=== PATIENT | female | born 1955 | race African-American/Black ===

== ENCOUNTER 2018-02-24 23:14 | Emergency (ER) | payer MEDICAID ==
[~2018-02-24] VITALS: Ht 172.7 cm; Wt 108.9 kg
[2018-02-25 00:23] LABS: Basophils # (auto) 0.2 uL; Basophils % (auto) 2.6 % (0.0-2.0); Eosinophils # (auto) 0.2 uL; Eosinophils % (auto) 3.3 % (0.0-7.0); Hematocrit 35.2 % (36.0-46.0); Hemoglobin 11.5 g/dL (12.2-16.2); Lymphocytes # (auto) 0.7 uL; Lymphocytes % (auto) 10.4 % (10.0-50.0); Mean Corpuscular Hemoglobin 29.9 pg (28.0-32.0); Mean Corpuscular Hgb Conc. 32.7 g/dL (32.0-36.0); Mean Corpuscular Volume 91.7 fL (80.0-100.0); Monocytes # (auto) 0.5 uL; Monocytes % (auto) 6.7 % (0.0-12.0); Neutrophils # (auto) 5.5 uL; Platelet Count (auto) 180 10^3/uL (140-450); Red Blood Cells 3.84 10^6/uL (4.0-5.20); Red Cell Distribution Width 15.1 % (11.8-14.3); White Blood Cell 7.2 10^3/uL (4.4-10.8)
[2018-02-25 00:39] LABS: Albumin 3.3 g/dL (3.4-5.0); BUN/Creatinine Ratio 15.7; Calcium 9.6 mg/dL (8.5-10.1); Potassium 4.1 mmol/L (3.5-5.1)
[2018-02-25 00:41] LABS: Bilirubin, Total 0.2 mg/dL (0.2-1.0); Total Protein 7.4 g/dL (6.4-8.2)
[2018-02-25] MEDS ORDERED: KETOROLAC TROMETH 60MG/2ML VIAL IM ONE (01:15)
[2018-02-25] MEDS ORDERED: HYDROcodone-ACET 7.5/325MG TAB PO ONE (01:15)
[2018-02-25 01:39] LABS: INR 1.16 (0.9-1.15); Partial Thromboplastin Time 30.6 sec (23.78-33.04); Prothrombin Time 12.3 sec (9.27-12.13)
[2018-02-25 03:03] LABS: Urine Bacteria NONE SEEN /hpf (None Seen); Urine Blood Negative /uL (Negative); Urine Specific Gravity 1.014 (1.001-1.035); Urine WBC 11 /hpf (0 - 5)
[2018-02-25 03:40] VITALS: BP 159/64
== END 2018-02-25 03:41 | disposition home or self-care (01) ==
LOC: EDBD 23:14 → ER 23:14 → EDUNIT# 23:14 → ER 02-25 03:41
DX: M54.12 Radiculopathy, cervical region (principal); R07.9 Chest pain, unspecified; E11.9 Type 2 diabetes mellitus without complications; I10 Essential (primary) hypertension
CPT/HCPCS: 36415; 71045; 72125; 80053; 81001; 83880; 84484; 85025; 85610; 85730; 93005; 94761; 96372; 99285; J1885

== ENCOUNTER 2019-07-13 22:27 | Inpatient (IN) | payer MEDICARE, MEDICAID ==
[~2019-07-13] VITALS: Ht 170.2 cm; Wt 107.8 kg
[2019-07-13] MEDS ORDERED: cloNIDine HCL 0.1 MG TAB ONE (23:18)
[2019-07-14] VITALS (9 sets, daily range): BP systolic 125–210; BP diastolic 64–104
[2019-07-14 00:13] LABS: INR 1.06 (0.9-1.15); Partial Thromboplastin Time 31.9 sec (23.64-32.05)
[2019-07-14 00:14] LABS: Calcium 10.3 mg/dL (8.5-10.1); Potassium 3.8 mmol/L (3.5-5.1)
[2019-07-14 00:18] LABS: BUN/Creatinine Ratio 9.5; Bilirubin, Total 0.2 mg/dL (0.2-1.0); Total Protein 8.2 g/dL (6.4-8.2)
[2019-07-14 00:35] LABS: Basophils # (auto) 0 10 ^3/uL (0-0.2); Basophils % (auto) 0.3 % (0.0-2.0); Eosinophils # (auto) 0 10 ^3/uL (0-0.8); Eosinophils % (auto) 0.1 % (0.0-7.0); Hematocrit 34.1 % (36.0-46.0); Hemoglobin 10.2 g/dL (12.2-16.2); Lymphocytes # (auto) 0.6 10 ^3/uL (0.4-5.4); Lymphocytes % (auto) 4.3 % (10.0-50.0); Mean Corpuscular Hemoglobin 29.5 pg (28.0-32.0); Mean Corpuscular Hgb Conc. 29.9 g/dL (32.0-36.0); Mean Corpuscular Volume 98.5 fL (80.0-100.0); Monocytes # (auto) 0.9 10 ^3/uL (0-1.3); Monocytes % (auto) 6.5 % (0.0-12.0); Neutrophils # (auto) 12.7 10 ^3/uL (1.6-8.6); Neutrophils % (auto) 88.8 % (37.0-80.0); Nucleated Red Blood Cells % 0.1 %; Platelet Count (auto) 279 10^3/uL (140-450); Red Blood Cells 3.46 10^6/uL (4.0-5.20); White Blood Cell 14.3 10^3/uL (4.4-10.8)
[2019-07-14 00:41] LABS: Albumin 2.4 g/dL (3.4-5.0)
[2019-07-14] MEDS ORDERED: PANTOPRAZOLE 40 MG/10 ML VIAL INJ IV ONE (04:30)
[2019-07-14] MEDS ORDERED: SODIUM CHLORIDE 0.9% 1,000 ML IV ONE (04:30)
[2019-07-14] MEDS ORDERED: metroNIDAZOLE 500MG/100ML 100 ML IV ONE (04:30)
[2019-07-14] MEDS ORDERED: MORPHINE SULF INJ 2 MG/ML SYRINGE 1ML IV ONE (05:15)
[2019-07-14] MEDS ORDERED: ONDANSETRON HCL 4 MG/2 ML VIAL IV ONE (05:15)
[2019-07-14] MEDS ORDERED: SODIUM CHLORIDE 0.9% 1,000 ML IV SCH (05:57)
[2019-07-14] MEDS ORDERED: DOCUSATE SOD 100 MG CAP PO PRN (06:00)
[2019-07-14] MEDS ORDERED: ACETAMINOPHEN 325 MG TAB PO PRN (06:00)
[2019-07-14] MEDS ORDERED: DEXTROSE (50%) 50ML SYRG IV PRN (06:00)
[2019-07-14] MEDS ORDERED: ONDANSETRON HCL 4 MG/2 ML VIAL IV PRN (06:00)
[2019-07-14] MEDS ORDERED: HYDROcodone-ACET 5/325MG TAB PO PRN ×3 (06:00→15:30)
[2019-07-14] MEDS: metroNIDAZOLE 500MG/100ML 100 ML IV SCH ×2 (06:00→12:26)
[2019-07-14 07:43] LABS: BUN/Creatinine Ratio 11.1; Calcium 9.2 mg/dL (8.5-10.1); Potassium 4.1 mmol/L (3.5-5.1)
[2019-07-14] MEDS: MORPHINE SULFATE 4 MG/ML SYR/VIAL IV PRN ×2 (07:58→12:27)
[2019-07-14] MEDS: InsuLIN REG 1unit/0.01ml Soln (100units/ml) SC SCH ×2 (08:00→12:28)
[2019-07-14 08:02] LABS: Basophils # (auto) 0 10 ^3/uL (0-0.2); Eosinophils # (auto) 0 10 ^3/uL (0-0.8); Eosinophils % (auto) 0.2 % (0.0-7.0)
[2019-07-14 08:03] LABS: Basophils % (auto) 0.2 % (0.0-2.0); Hematocrit 23.9 % (36.0-46.0); Hemoglobin 7.8 g/dL (12.2-16.2); Lymphocytes # (auto) 0.8 10 ^3/uL (0.4-5.4); Lymphocytes % (auto) 7.4 % (10.0-50.0); Mean Corpuscular Hgb Conc. 32.8 g/dL (32.0-36.0); Mean Corpuscular Volume 91.5 fL (80.0-100.0); Monocytes # (auto) 0.8 10 ^3/uL (0-1.3); Monocytes % (auto) 7.6 % (0.0-12.0); Neutrophils # (auto) 9.3 10 ^3/uL (1.6-8.6); Neutrophils % (auto) 84.6 % (37.0-80.0); Nucleated Red Blood Cells % 0.1 %; Platelet Count (auto) 234 10^3/uL (140-450); Red Blood Cells 2.61 10^6/uL (4.0-5.20); Red Cell Distribution Width 16.1 % (11.8-14.3)
[2019-07-14] MEDS: ACCU-CHEK COMFORT CURVE STRIP VI SCH ×2 (08:38→12:26)
[2019-07-14] MEDS ORDERED: LOSARTAN POTASSIUM 50 MG TAB PO SCH (10:00)
[2019-07-14] MEDS ORDERED: GOLYTELY 4L KIT PO ONE (10:45)
[2019-07-14] MEDS: hydrALAZINE HCL 25 MG TAB PO SCH ×2 (14:40→21:31)
[2019-07-14] MEDS: SODIUM CHLORIDE 0.9% 1,000 ML IV SCH (15:00)
[2019-07-14] MEDS ORDERED: levoFLOXacin 750MG 150 ML IV ONE (15:00)
--- NOTE | 2019-07-14 15:30 | NUR ---
Midline Placement: Patient educated on need for midline placement. All risks and benefits explained and all questions and concerns addresses prior to procedure. 18g/10cm midline inserted via left basilic vein using Ultrasound. Sterile technique utilized. Blood return obtained from lumen and flushed easily with NS using proper technique. Midline secured with saline lock; biodisc and occlusive dressing applied. Jimmy LACEY notified. Midline lot #[id number]
[2019-07-14] MEDS ORDERED: LABETALOL HCL 5 MG/ML ML 20ML VIAL IV PRN (17:30)
[2019-07-14] MEDS ORDERED: LOSA-39 PO (18:56)
[2019-07-14] MEDS ORDERED: HYDR50TA15 PO (18:56)
[2019-07-14] MEDS ORDERED: METO-159 PO (18:56)
[2019-07-14] MEDS ORDERED: RIVA20TA PO (18:56)
--- NOTE | 2019-07-14 20:00 | NUR ---
Opening Shift Note Assumed care of patient, awake and alert. No S/S of distress/SOB or pain. Instructed on POC and to call for assist PRN, will continue to monitor for changes Q1hr and PRN.
[2019-07-14] MEDS: CLINDAMYCIN 600MG IV 50 ML IV SCH (21:32)
[2019-07-14] MEDS: HYDROcodone-ACET 5/325MG TAB PO PRN (23:38)
[2019-07-15 05:00] VITALS: BP 158/84
[2019-07-15] MEDS: CLINDAMYCIN 600MG IV 50 ML IV SCH ×3 (05:42→21:56)
--- NOTE | 2019-07-15 05:58 | NUR ---
Called hospitalist regarding IV pain med.
[2019-07-15] MEDS: hydrALAZINE HCL 25 MG TAB PO SCH ×3 (06:00→21:57)
[2019-07-15 08:00] VITALS: BP 162/76
[2019-07-15] MEDS: SODIUM CHLORIDE 0.9% 1,000 ML IV SCH (09:32)
[2019-07-15] MEDS: levoFLOXacin 750MG 150 ML IV SCH (09:33)
[2019-07-15] MEDS ORDERED: PROPOFOL 10 MG/ML 20 ML IV ONE (09:58)
[2019-07-15] MEDS ORDERED: fentaNYL CITRATE 100 MCG/2 ML VL ONE (09:58)
[2019-07-15] MEDS ORDERED: ONDANSETRON HCL 4 MG/2 ML VIAL ONE (09:58)
[2019-07-15] MEDS ORDERED: SODIUM CHLORIDE LOCK 10 ML ONE (09:58)
[2019-07-15] MEDS ORDERED: MIDAZOLAM HCL 1MG/1ML-2 ML VIAL ONE (09:58)
[2019-07-15 10:29] LABS: Basophils # (auto) 0.1 10 ^3/uL (0-0.2); Basophils % (auto) 0.7 % (0.0-2.0); Eosinophils # (auto) 0.1 10 ^3/uL (0-0.8); Eosinophils % (auto) 0.5 % (0.0-7.0); Hematocrit 28.4 % (36.0-46.0); Lymphocytes # (auto) 0.4 10 ^3/uL (0.4-5.4); Lymphocytes % (auto) 3.2 % (10.0-50.0); Mean Corpuscular Hemoglobin 28.9 pg (28.0-32.0); Mean Corpuscular Hgb Conc. 31.8 g/dL (32.0-36.0); Monocytes % (auto) 7.5 % (0.0-12.0); Neutrophils % (auto) 88.1 % (37.0-80.0); Platelet Count (auto) 253 10^3/uL (140-450); Red Blood Cells 3.12 10^6/uL (4.0-5.20); Red Cell Distribution Width 16.1 % (11.8-14.3); White Blood Cell 13.6 10^3/uL (4.4-10.8)
[2019-07-15 10:47] LABS: BUN/Creatinine Ratio 9.2; Calcium 9.4 mg/dL (8.5-10.1); Potassium 4.5 mmol/L (3.5-5.1)
[2019-07-15 13:00] VITALS: BP 160/69
--- NOTE | 2019-07-15 13:36 | NUR ---
WOUND CARE NOTE: Wound care in to see patient per wound care request regarding "Lt ankle wound" that are noted present on admission. Bedside nurse took photograph of patient's wound upon admission for reference. Patient is 64 years old female with admitting diagnosis of Lower GI Bleed, ASH, Uncontrolled DM. Patient with history of DM,htn. Patient is resting in bed in Rm. 296B. Patient is awake, alert and able to verbalize needs. Patient is in no stated pain at this time. Patient is able to assist in turning and repositioning. Her Shaun score is 17. Skin/wound assessment done with the assistance of patient's nurse, ABHIJIT Marquez. Patient's LLE noted edematous with hyperpigmented skin. Her L medial ankle noted with 4x5cm open full thickness wound with no measurable depth. Wound bed is red with yellow slough, with thick, hyperpigmented skin to periwound, scant serous drainage noted, no odor noted. Cleansed patient's Lt medial ankle wound with NS and ABHIJIT Marquez took specimen for wound culture. Patted dry wound with sterile gauze, applied Thera honey gel, covered with Telfa (non-adherent dressing), wrapped with Kerlix and secured with tape. Patient tolerated well. Unable to check patient's sacral and back as patient having Ultra sound. Informed ABHIJIT Marquez to placed consult in case patient has other wound/wounds on sacral/back. RECOMMENDATION: Nursing to continue with BID/PRN cleaning and application of Barrier cream to sacral,buttocks as preventative; EOD/PRN Dressing change to Lt c medial ankle wound per MD order, Dietary consult for wound, Podiatry consult, elevate edematous extremity on pillow,frequent turning and repositioning schedule as condition permits, redistribute pressure points with pillows, continue monitoring by wound care while patient is hospitalized. Addendum: 07/15/19 at 1457 by Deepali Tyler RN Amended: Links added.
[2019-07-15 14:31] LABS: Urine Bacteria FEW /hpf (None Seen); Urine Blood TRACE /uL (Negative); Urine Specific Gravity 1.009 (1.001-1.035); Urine WBC 2 /hpf (0 - 5)
[2019-07-15 14:56] LABS: Protein, Urine 252.2 mg/dL (0.0-11.9)
[2019-07-15] MEDS: HYDROcodone-ACET 5/325MG TAB PO PRN ×2 (15:09→20:54)
--- NOTE | 2019-07-15 16:21 | NUR ---
assessment re: ss consult needs help at home Patient is a 64 year old female who is alert and oriented. Patients cognitive abilities are intact. Prior to admission patient lived home alone and functioned with assistance. Per patient she will return home to her prior living arrangements post discharge and family will transport her home. Patient has a cane for home use. Patients PCP is Dr Coreas. I informed patient of her ss consult. Per patient she now has an [facility] caregiver. Per patient and granddaughter Toño patient will be fine with a home health nurse to come and do vitals and wound care. Patient has no preference on home health company. I informed patient and family once we have an order for home health someone would be by to do a choice letter with them. Patient informed me she now feels safe returning home. I informed patient she has a right to speak to a long term care social worker regarding all care. I informed patient she has a right to participate in any and all discharge planning. Patient does not have a POA and advanced directive. I have offered patient information on POA and advanced directives. I informed the patient the advantages and benefits of having an Advanced Directive. Patient verbalized understanding and agreed to discharge plan. Addendum: 07/15/19 at 1625 by Gosia WILEY Amended: Links added.
[2019-07-15 17:00] VITALS: BP 139/75
--- NOTE | 2019-07-15 19:30 | NUR ---
Opening Shift Note Report received from day shift RN. Assumed care of patient, awake, A&O x4. No S/S of distress/SOB noted at this time. Patient c/o left ankle pain. Will medicate for pain as ordered. On room air with even unlabored respirations. Bed in lowest locked position, side rails up x2, call light within reach. Instructed on POC and to call for assist PRN, will continue to monitor for changes Q1hr and PRN.
--- NOTE | 2019-07-15 20:54 | NUR ---
PAIN PATIENT C/O OF LEFT ANKLE PAIN, 7/10 ON A NUMERICAL SCALE. NORCO 5/325 GIVEN. WILL CONTINUE TO MONITOR.
[2019-07-16] MEDS: SODIUM CHLORIDE 0.9% 1,000 ML IV SCH (00:34)
[2019-07-16] MEDS: HYDROcodone-ACET 5/325MG TAB PO PRN ×4 (01:33→22:36)
--- NOTE | 2019-07-16 01:33 | NUR ---
PAIN PATIENT C/O OF LEFT ANKLE PAIN, 7/10 ON A NUMERICAL SCALE. NORCO 5/325 GIVEN. WILL CONTINUE TO MONITOR.
--- NOTE | 2019-07-16 02:33 | NUR ---
PAIN REASSESSMENT PATIENT SLEEPING COMFORTABLY IN BED.
[2019-07-16 05:00] VITALS: BP 157/66
[2019-07-16] MEDS: CLINDAMYCIN 600MG IV 50 ML IV SCH ×3 (05:32→22:24)
[2019-07-16] MEDS: hydrALAZINE HCL 25 MG TAB PO SCH ×3 (05:35→22:24)
[2019-07-16 06:10] LABS: Potassium 4.3 mmol/L (3.5-5.1)
[2019-07-16 06:15] LABS: Magnesium 1.6 mg/dL (1.6-2.6)
[2019-07-16 06:17] LABS: Albumin 1.5 g/dL (3.4-5.0); BUN/Creatinine Ratio 9.8; Calcium 9.4 mg/dL (8.5-10.1)
[2019-07-16 06:19] LABS: Bilirubin, Total 0.1 mg/dL (0.2-1.0); Total Protein 6.1 g/dL (6.4-8.2)
[2019-07-16 08:00] VITALS: BP 128/77
[2019-07-16 09:00] VITALS: BP 122/72
[2019-07-16 10:03] LABS: Basophils # (auto) 0 10 ^3/uL (0-0.2); Basophils % (auto) 0.3 % (0.0-2.0); Eosinophils # (auto) 0.1 10 ^3/uL (0-0.8); Hematocrit 26.8 % (36.0-46.0); Hemoglobin 8.7 g/dL (12.2-16.2); Lymphocytes # (auto) 0.4 10 ^3/uL (0.4-5.4); Lymphocytes % (auto) 3.6 % (10.0-50.0); Mean Corpuscular Hemoglobin 29.5 pg (28.0-32.0); Mean Corpuscular Hgb Conc. 32.5 g/dL (32.0-36.0); Mean Corpuscular Volume 90.6 fL (80.0-100.0); Monocytes % (auto) 8.1 % (0.0-12.0); Neutrophils # (auto) 10.3 10 ^3/uL (1.6-8.6); Nucleated Red Blood Cells % 0.1 %; Platelet Count (auto) 231 10^3/uL (140-450); Red Blood Cells 2.96 10^6/uL (4.0-5.20); Red Cell Distribution Width 15.9 % (11.8-14.3); White Blood Cell 11.8 10^3/uL (4.4-10.8)
[2019-07-16] MEDS ORDERED: ERGOCALCIFEROL 50,000 UNIT(1.25MG) CAP PO SCH (12:30)
[2019-07-16 13:00] VITALS: BP 158/86
[2019-07-16] MEDS: MAGNESIUM SULFATE 1GM/100ML 100 ML IV SCH ×2 (13:18→13:39)
[2019-07-16] MEDS ORDERED: CEPH-37 PO (13:40)
[2019-07-16] MEDS ORDERED: METO25TA5 PO (13:40)
[2019-07-16] MEDS ORDERED: HYDR50TA15 PO (13:40)
[2019-07-16] MEDS ORDERED: CHOL20007 PO (13:43)
--- NOTE | 2019-07-16 14:49 | NUR ---
Freight Manager regarding resuming Home Health. Pt stated she did not have a choice as to which Home Health. Romina contacted and information faxed to [facility]. Information received and services to resume upon discharge. Will notify covering nurse and LUCIANA II of the above. Addendum: 07/16/19 at 1521 by CASA BROWNE SS Social service consult for new Home Health Referral. Gave pt a choice letter for pt to chose which Agency she wanted. Pt has no preference. Referral was sent to [facility] (Fax,[phone], ). Will begin as soon as pt is discharge. Choice letter is signed and is in chart.
--- NOTE | 2019-07-16 15:55 | NUR ---
Respiratory note: DR CRAIG PAGED TO READ BACK CRITICAL ABG VALUES. ABG DRAWN TO SEE IF PT QUALIFIES FOR HOME O2. BASED ON PO2 VALUE OF 46.7 PT QUALIFIES FOR HOME O2. RN MADE AWARE.
--- NOTE | 2019-07-16 16:41 | NUR ---
D/C Planning Per SS consult for home oxygen. Placed called to [facility] regarding order for oxygen. Per SHELDON Ricardo there is no Respiratory diagnoses on Progress notes. Placed called to Dr. Back. Per doctor Dr. Back she will included respiratory diagnosis tomorrow . ABHIJIT Marquez was informed.
[2019-07-16 17:30] VITALS: BP 151/70
[2019-07-17] MEDS: HYDROcodone-ACET 5/325MG TAB PO PRN ×3 (02:39→15:44)
[2019-07-17 05:00] VITALS: BP 139/70
[2019-07-17] MEDS: CLINDAMYCIN 600MG IV 50 ML IV SCH ×2 (05:53→14:45)
[2019-07-17] MEDS: hydrALAZINE HCL 25 MG TAB PO SCH ×2 (05:54→14:42)
[2019-07-17 07:08] LABS: Basophils # (auto) 0 10 ^3/uL (0-0.2); Basophils % (auto) 0.1 % (0.0-2.0); Eosinophils # (auto) 0.1 10 ^3/uL (0-0.8); Eosinophils % (auto) 0.6 % (0.0-7.0); Hematocrit 27.8 % (36.0-46.0); Hemoglobin 8.9 g/dL (12.2-16.2); Lymphocytes # (auto) 0.5 10 ^3/uL (0.4-5.4); Lymphocytes % (auto) 3.7 % (10.0-50.0); Mean Corpuscular Hemoglobin 29.1 pg (28.0-32.0); Mean Corpuscular Volume 90.8 fL (80.0-100.0); Monocytes % (auto) 7.5 % (0.0-12.0); Neutrophils # (auto) 11.8 10 ^3/uL (1.6-8.6); Neutrophils % (auto) 88.1 % (37.0-80.0); Platelet Count (auto) 236 10^3/uL (140-450); Red Blood Cells 3.06 10^6/uL (4.0-5.20); Red Cell Distribution Width 16.3 % (11.8-14.3); White Blood Cell 13.5 10^3/uL (4.4-10.8)
[2019-07-17 07:18] LABS: Calcium 9.4 mg/dL (8.5-10.1); Potassium 4.4 mmol/L (3.5-5.1)
[2019-07-17 07:24] LABS: Albumin 1.5 g/dL (3.4-5.0); BUN/Creatinine Ratio 10.7; Bilirubin, Total 0.2 mg/dL (0.2-1.0); Total Protein 6.5 g/dL (6.4-8.2)
[2019-07-17] MEDS ORDERED: FUROSEMIDE 40 MG/4 ML VIAL IV ONE (09:30)
[2019-07-17 09:36] VITALS: BP 141/80
[2019-07-17] MEDS: levoFLOXacin 750MG 150 ML IV SCH (09:57)
[2019-07-17] MEDS ORDERED: FUROSEMIDE 20 MG/2 ML VIAL ONE (10:07)
[2019-07-17] MEDS ORDERED: FURO40TA4 PO (13:27)
[2019-07-17 14:21] VITALS: BP 141/73
--- NOTE | 2019-07-17 15:21 | NUR ---
SPOKE WITH SUSAN ABOUT TIME FRAME FOR HOME OXYGEN, SHE WILL GET BACK TO ME WHEN SHE HERSELF HAS A TIME FRAME FOR DELIVERY. PATIENT IS AWARE SHE IS BEING D/C AND THAT HOME HEALTH CONSULT IS IN WITH [facility] AND THAT ALL WE ARE WAITING ON IS OXYGEN SO SHE CAN GO HOME SAFELY, PATIENT VERBALIZED UNDERSTANDING.
[2019-07-17 16:27] VITALS: BP 160/78
--- NOTE | 2019-07-17 16:35 | NUR ---
D/C planning Faxed order to [facility] with notes including respiratory diagnoses. Per Kaylynn with [facility]:) oxygen has been approved and they will deliver portable oxygen to bedside between 15:00-17:30. ABHIJIT Mccann was informed of d/c plan.
--- NOTE | 2019-07-17 18:51 | NUR ---
PATIENT HOME O2 WAS DELIVERED TO BEDSIDE AROUND 1730. PATIENT WAS GIVEN DISCHARGE INFORMATION REGARDING F/U APPTS, DIET AND ACTIVITY AND HOME HEALTH VISITS THAT WERE ARRANGED AND VERBALIZED UNDERSTANDING. DC'D MIDLINE, TIP WAS INTACT, PRESSURE DRG APPLIED, ADVISED PATIENT THAT SHE CAN TAKE DRG OFF WHEN SHE GETS HOME. VS WNL AND PATIENT IS ALERT X4 TO RECEIVE THE INFORMATION. SPOKE WITH PATIENT'S SON VERONICA WHO WILL BE PICKING HER UP AT APPROX 1900.
--- NOTE | 2019-07-31 15:53 | NUR ---
Derrickman Helper consult regarding resuming Home Health. Pt was previously on service with [facility] and will be resuming with this service upon discharge. [facility] contacted and information faxed to [facility]. Information received and services to resume upon discharge . Will notify covering nurse and LUCIANA II of the above.
== END 2019-07-17 18:55 | disposition home health service (06) | DRG 244 ==
LOC: EDBD 22:27 → ER 22:30 → TELE 22:31 → TELE-WESTW 07-14 09:30
PROVIDERS: ADMIT Hospitalist; ATTEND Internal Medicine
PROC: 0DBL8ZX Excision of Transverse Colon, Via Natural or Artificial Opening Endoscopic, Diagnostic (ICD-10-PCS; 2019-07-15)
PROC: 30233N1 Transfusion of Nonautologous Red Blood Cells into Peripheral Vein, Percutaneous Approach (ICD-10-PCS; 2019-07-15)
PROC: 0DBM8ZX Excision of Descending Colon, Via Natural or Artificial Opening Endoscopic, Diagnostic (ICD-10-PCS; principal; 2019-07-15 11:14)
DX: K57.91 Diverticulosis of intestine, part unspecified, without perforation or abscess with bleeding (principal); N17.0 Acute kidney failure with tubular necrosis; J96.01 Acute respiratory failure with hypoxia; E43 Unspecified severe protein-calorie malnutrition; E11.21 Type 2 diabetes mellitus with diabetic nephropathy; J81.1 Chronic pulmonary edema; E11.621 Type 2 diabetes mellitus with foot ulcer; E11.22 Type 2 diabetes mellitus with diabetic chronic kidney disease; D62 Acute posthemorrhagic anemia; L97.529 Non-pressure chronic ulcer of other part of left foot with unspecified severity; E11.65 Type 2 diabetes mellitus with hyperglycemia; D72.829 Elevated white blood cell count, unspecified; I12.9 Hypertensive chronic kidney disease with stage 1 through stage 4 chronic kidney disease, or unspecified chronic kidney disease; E83.42 Hypomagnesemia; N18.4 Chronic kidney disease, stage 4 (severe); K64.8 Other hemorrhoids; G89.29 Other chronic pain; M54.9 Dorsalgia, unspecified; E66.01 Morbid (severe) obesity due to excess calories; D64.9 Anemia, unspecified; Z86.718 Personal history of other venous thrombosis and embolism; Z91.19 Patient's noncompliance with other medical treatment and regimen; Z68.37 Body mass index [BMI] 37.0-37.9, adult; Z86.73 Personal history of transient ischemic attack (TIA), and cerebral infarction without residual deficits; K63.5 Polyp of colon; I83.009 Varicose veins of unspecified lower extremity with ulcer of unspecified site
CPT/HCPCS: 36415; 36600; 71045; 73700; 73721; 74176; 76775; 78582; 80048; 80053; 81001; 82306; 82570; 82805; 82962; 83036; 83605; 83735; 83880; 83970; 84100; 84156; 84300; 85025; 85610; 85652; 85730; 86141; 86850; 86900; 86901; 86920; 87040; 87077; 87086; 87088; 87186; 87205; 87804; 93005; 93926; 93971; 96361; 96365; 96375; C9113; G0378; J1815; J1956; J2250; J2405; J2704; J3490

== ENCOUNTER 2019-07-19 19:06 | Inpatient (IN) | payer MEDICARE, MEDICAID ==
[~2019-07-19] VITALS: Ht 172.7 cm; Wt 101.8 kg
[~2019-07-19 19:06] MED LIST: CEPH-37 PO; CHOL20007 PO; FURO40TA4 PO; HYDR50TA15 PO; METO-159 PO; METO25TA5 PO
[2019-07-19] MEDS ORDERED: SODIUM CHLORIDE 0.9% 1,000 ML IVB ONE (20:07)
[2019-07-19] MEDS ORDERED: MORPHINE SULF INJ 2 MG/ML SYRINGE 1ML IV ONE (20:15)
[2019-07-19] MEDS ORDERED: ONDANSETRON HCL 4 MG/2 ML VIAL IV ONE (20:15)
[2019-07-19 21:39] LABS: Basophils # (auto) 0 10 ^3/uL (0-0.2); Basophils % (auto) 0.3 % (0.0-2.0); Eosinophils # (auto) 0.2 10 ^3/uL (0-0.8); Eosinophils % (auto) 1.1 % (0.0-7.0); Hematocrit 31.9 % (36.0-46.0); Hemoglobin 10.6 g/dL (12.2-16.2); Lymphocytes # (auto) 0.6 10 ^3/uL (0.4-5.4); Lymphocytes % (auto) 3.9 % (10.0-50.0); Mean Corpuscular Hemoglobin 29.3 pg (28.0-32.0); Mean Corpuscular Hgb Conc. 33.1 g/dL (32.0-36.0); Mean Corpuscular Volume 88.5 fL (80.0-100.0); Monocytes # (auto) 1.2 10 ^3/uL (0-1.3); Monocytes % (auto) 7.4 % (0.0-12.0); Neutrophils % (auto) 87.3 % (37.0-80.0); Nucleated Red Blood Cells % 0.1 %; Platelet Count (auto) 277 10^3/uL (140-450); Red Cell Distribution Width 16.6 % (11.8-14.3)
[2019-07-19 21:41] LABS: Albumin 1.7 g/dL (3.4-5.0); Calcium 10.2 mg/dL (8.5-10.1); Magnesium 2.2 mg/dL (1.6-2.6); Potassium 3.9 mmol/L (3.5-5.1)
[2019-07-19 21:42] LABS: INR 1.07 (0.9-1.15); Partial Thromboplastin Time 22.7 sec (23.64-32.05)
[2019-07-19 21:45] LABS: BUN/Creatinine Ratio 12.5; Bilirubin, Total 0.1 mg/dL (0.2-1.0); Total Protein 7.2 g/dL (6.4-8.2)
[2019-07-19] MEDS ORDERED: MORPHINE SULFATE 4 MG/ML SYR/VIAL IV ONE (23:45)
[2019-07-20] MEDS ORDERED: MORPHINE SULFATE 4 MG/ML SYR/VIAL IV ONE (02:45)
[2019-07-20] MEDS ORDERED: SODIUM CHLORIDE 0.9% 1,000 ML IV SCH (02:54)
[2019-07-20] MEDS ORDERED: DEXTROSE (50%) 50ML SYRG IV PRN (03:00)
[2019-07-20] MEDS ORDERED: ACETAMINOPHEN 325 MG TAB PO PRN (03:00)
[2019-07-20] MEDS: InsuLIN REG 1unit/0.01ml Soln (100units/ml) SC SCH ×5 (04:00→21:12)
[2019-07-20] MEDS: CLINDAMYCIN 600MG IV 50 ML IV SCH ×3 (04:16→17:48)
[2019-07-20] MEDS: ACCU-CHEK COMFORT CURVE STRIP VI SCH ×5 (04:16→20:00)
--- NOTE | 2019-07-20 04:55 | NUR ---
MS admit from ER Patient admitted to tele/MS. Patient oriented to primary RN, unit, room, bed, and unit policies regarding patient care and visiting hours. Patient weighed by bedscale and encouraged to call if they need something. All questions and concerns addressed, patient verbalized understanding. Patient complains of pain, pain level 9, will medicate per MD order. Bed is lowest position, bed rails 2x, bed wheels locked. Call light and bedside table are within reach. Patient on 2L NC PRN.
[2019-07-20] MEDS: MORPHINE SULFATE 4 MG/ML SYR/VIAL IV PRN ×2 (05:18→09:48)
[2019-07-20 05:43] VITALS: BP 155/76
[2019-07-20] MEDS: hydrALAZINE HCL 25 MG TAB PO SCH ×3 (06:34→21:20)
--- NOTE | 2019-07-20 07:10 | NUR ---
Opening Shift Note Assumed care of patient, awake and alert. No S/S of distress/SOB or pain. POC discussed and questions answered. Bed is locked in lowest position with side rails up x2 for safety. call light is within reach and patient is encouraged to call for assistance as needed. Will continue to monitor for changes Q1hr and PRN
--- NOTE | 2019-07-20 07:45 | NUR ---
Reviewed home medications Called patient's son and verified current home medications. Son states to notify him of any changes because his mother is a poor historian.
[2019-07-20 08:24] LABS: Basophils # (auto) 0.1 10 ^3/uL (0-0.2); Basophils % (auto) 0.3 % (0.0-2.0); Eosinophils # (auto) 0.4 10 ^3/uL (0-0.8); Hematocrit 33.1 % (36.0-46.0); Hemoglobin 10.3 g/dL (12.2-16.2); Lymphocytes % (auto) 5.5 % (10.0-50.0); Mean Corpuscular Hemoglobin 29.3 pg (28.0-32.0); Mean Corpuscular Volume 94.5 fL (80.0-100.0); Monocytes # (auto) 1.5 10 ^3/uL (0-1.3); Monocytes % (auto) 8.5 % (0.0-12.0); Neutrophils % (auto) 83.7 % (37.0-80.0); Platelet Count (auto) 262 10^3/uL (140-450); Red Cell Distribution Width 17.7 % (11.8-14.3)
[2019-07-20 09:00] VITALS: BP 147/81
[2019-07-20] MEDS: METOPROLOL TARTRATE 25 MG TAB PO SCH ×2 (09:47→21:20)
--- NOTE | 2019-07-20 09:55 | NUR ---
WOUND CARE NOTE: Informed patient's bedside nurse,ABHIJIT Ramirez that admission photo of wound are need to be taken.
[2019-07-20] MEDS ORDERED: FUROSEMIDE 40 MG TAB PO SCH (10:00)
[2019-07-20 13:00] VITALS: BP 166/81
[2019-07-20] MEDS: HYDROcodone-ACET 5/325MG TAB PO PRN ×2 (13:01→21:33)
[2019-07-20] MEDS: SODIUM CHLORIDE 0.9% 1,000 ML IV SCH ×2 (13:15→23:15)
[2019-07-20] MEDS ORDERED: CEFTRIAXONE SODIUM 2 GM in D5W 5% 50 ML IV ONE (13:15)
[2019-07-20 15:30] LABS: Anion Gap 5 (5-15); Carbon Dioxide 26 mmol/L (21-32); Chloride 104 mmol/L (98-107); Glucose 183 mg/dL (74-106); Potassium 4.2 mmol/L (3.5-5.1); Sodium 135 mmol/L (136-145)
[2019-07-20 15:31] LABS: Blood Urea Nitrogen 34 mg/dL (7-18)
[2019-07-20 15:34] LABS: BUN/Creatinine Ratio 12.8; Calcium 9.3 mg/dL (8.5-10.1); Cholesterol 169 mg/dL (< 200); GFR African American 23 mL/min; GFR Non-African American 19 mL/min; HDL Cholesterol 34 mg/dL (40-59); LDL Cholesterol 104 mg/dL (< 100); Triglycerides 183 mg/dL (< 150)
[2019-07-20 17:00] VITALS: BP 129/65
[2019-07-20] MEDS: DOCUSATE SOD 100 MG CAP PO PRN (17:02)
--- NOTE | 2019-07-20 17:22 | NUR ---
WOUND CARE NOTE: Wound care in to see patient per wound care request regarding "Chronic leg wound" that are noted present on admission. Patient is 64 years old female with admitting diagnosis of L Leg Blister, Chronic Wound, Cellulitis L leg. Patient with history of DM,htn,Depression. Patient is resting in bed in Rm. 222B. Patient is awake, alert and able to verbalize needs. Patient is in no stated pain at this time. Patient is able to turn and reposition self with minimal assistance. Her Shaun score is 18. Skin/wound assessment done with the assistance of patient's nurse, ABHIJIT Ramirez. Patient's LLE noted edematous with dark/ hyperpigmented skin. Her L dorsal foot has large serum filled blister measuring [id number]. Intact lump noted to her L lateral lower leg. Blister and lump has no drainage/odor noted, left open to air. Patient's left medial lower leg just proximal to medial ankle noted with open full thickness wound measuring 4x4x0.3 cm. Wound bed is red, pale pink with with thick, hyperpigmented skin to periwound, minimal serous drainage noted, no odor noted. Photograph of mentioned wounds/skin issue are taken for reference. Patient is poor historian and unable to give details about her wounds. Cleansed patient's Lt medial lower leg wound with wound cleanser, patted dry with sterile gauze, applied Thera honey gauze, covered with abd pad,and secured with stockinette. Patient turned to her L side, her sacral and back, heels and bony prominences are examined, no pressure injury noted. Patient tolerated well,repositioned for comfort, elevated LLE on pillow. bed in low position, call costello within reach, bed alarm on. RECOMMENDATION: Nursing to continue with BID/PRN cleaning and application of Barrier cream to sacral,buttocks as preventative; EOD/PRN Dressing change to Lt medial lower leg wound per MD order, Dietary consult for wound, Podiatry consult,cardiology consult, elevate edematous extremity on pillow, redistribute pressure points with pillows, continue monitoring by wound care while patient is hospitalized. Addendum: 07/20/19 at 1815 by Deepali Tyler RN Amended: Links added.
[2019-07-20] MEDS: FUROSEMIDE 100 MG/10ML VIAL IV SCH (17:48)
--- NOTE | 2019-07-20 19:24 | NUR ---
Opening Shift Note Assumed care of patient, awake and alert. No S/S of distress/SOB. Patient states pain level 8, will medicate per MD orders. Instructed on POC and to call for assist PRN, will continue to monitor for changes Q1hr and PRN. Bed is in lowest position, bed rails 2x, bed wheels locked. Call light and bedside table are within reach.
[2019-07-20 22:00] VITALS: BP 144/82
--- NOTE | 2019-07-20 23:16 | NUR ---
Urine Culture Collected urine specimen, sent to lab.
[2019-07-21] MEDS: CLINDAMYCIN 600MG IV 50 ML IV SCH ×3 (01:01→11:51)
[2019-07-21] MEDS: ACCU-CHEK COMFORT CURVE STRIP VI SCH ×6 (04:00→19:54)
[2019-07-21] MEDS: InsuLIN REG 1unit/0.01ml Soln (100units/ml) SC SCH ×6 (04:00→20:17)
[2019-07-21] MEDS: HYDROcodone-ACET 5/325MG TAB PO PRN ×4 (04:45→19:54)
--- NOTE | 2019-07-21 05:20 | NUR ---
Wound Care At this time left foot blister was found popped and purulent/clear fluid drained out of it. Performed wound care per MD order on left foot blister and on left ankle ulcer. Patient tolerated well. Will continue to monitor Q1 and PRN.
[2019-07-21 05:30] VITALS: BP 156/83
[2019-07-21 06:01] LABS: Basophils # (auto) 0.1 10 ^3/uL (0-0.2); Basophils % (auto) 0.4 % (0.0-2.0); Eosinophils # (auto) 0.2 10 ^3/uL (0-0.8); Eosinophils % (auto) 1.7 % (0.0-7.0); Lymphocytes # (auto) 0.9 10 ^3/uL (0.4-5.4); Lymphocytes % (auto) 7.3 % (10.0-50.0); Mean Corpuscular Hemoglobin 29.5 pg (28.0-32.0); Mean Corpuscular Hgb Conc. 32.3 g/dL (32.0-36.0); Mean Corpuscular Volume 91.5 fL (80.0-100.0); Monocytes # (auto) 1.1 10 ^3/uL (0-1.3); Monocytes % (auto) 8.5 % (0.0-12.0); Neutrophils # (auto) 10.2 10 ^3/uL (1.6-8.6); Neutrophils % (auto) 82.1 % (37.0-80.0); Platelet Count (auto) 222 10^3/uL (140-450); Red Blood Cells 3.06 10^6/uL (4.0-5.20); Red Cell Distribution Width 17.4 % (11.8-14.3); White Blood Cell 12.4 10^3/uL (4.4-10.8)
[2019-07-21 06:20] LABS: INR 1.08 (0.9-1.15); Partial Thromboplastin Time 24.6 sec (23.64-32.05)
[2019-07-21 06:37] LABS: Albumin 1.5 g/dL (3.4-5.0); BUN/Creatinine Ratio 13.6; Bilirubin, Total 0.2 mg/dL (0.2-1.0); Calcium 9.3 mg/dL (8.5-10.1); Phosphorus 3.8 mg/dL (2.5-4.90); Total Protein 6.4 g/dL (6.4-8.2)
[2019-07-21] MEDS: hydrALAZINE HCL 25 MG TAB PO SCH ×2 (07:07→14:24)
[2019-07-21] MEDS: FUROSEMIDE 100 MG/10ML VIAL IV SCH ×2 (07:14→19:53)
[2019-07-21] MEDS: SODIUM CHLORIDE 0.9% 1,000 ML IV SCH (08:55)
[2019-07-21 09:00] VITALS: BP 145/78
[2019-07-21] MEDS ORDERED: cefTRIAXone 1GM/50ML D5W 50 ML IV SCH (09:00)
[2019-07-21] MEDS ORDERED: ENOXAPARIN SOD 30 MG/0.3 ML SYRINGE SC SCH (10:00)
[2019-07-21] MEDS: METOPROLOL TARTRATE 25 MG TAB PO SCH (11:50)
[2019-07-21 13:00] VITALS: BP 143/72
--- NOTE | 2019-07-21 14:37 | NUR ---
NUTRITION ASSESSMENT NOTES Please refer to link notes of nutrition screen form filed under the intervention section of the plan of care for further details. Est. Energy Needs: 2898-9983 kcal (17-20 kcal/kg BW). Est. Protein Needs: 89-111 gms/day (1.2-1.5 gms/kg Adj.BW). Will continue to monitor pertinent labs and reassess nutrient need prn Addendum: 07/21/19 at [address] Amended: Links added.
[2019-07-21] MEDS: MORPHINE SULF INJ 2 MG/ML SYRINGE 1ML IV PRN ×2 (16:26→23:15)
--- NOTE | 2019-07-21 16:40 | NUR ---
Spoke to Dr. Michael over the phone. Orders received, read back and verified for MRI orders, confirmed WITH AND WITHOUT contrast, MD notified of patient BUN and creatinine levels.
--- NOTE | 2019-07-21 16:58 | NUR ---
CALLED PBX FOR CARDIO CONSULT, SAID THEY CANT TAKE CONSULT FOR [facility] AND WOULD HAVE TO CALL IT FOR [facility] TOMORROW 07/21. RN AWARE.
[2019-07-21 17:00] VITALS: BP 157/89
--- NOTE | 2019-07-21 18:00 | NUR ---
IV line access not available for 1800 medications. Midline placement order has been placed and team has been called, anticipated to happen tonight around 1830. Patient previous IV to the upper R chest infiltrated with normal saline, no s/s of erythema at this time, IV removed. Unable to get IV access at this time. turbine inspector attempted 3 times as well. Will continue to monitor patient.
[2019-07-21] MEDS: CEFEPIME 1 GM in SODIUM CHL 0.9% 50 ML IV SCH (19:54)
--- NOTE | 2019-07-21 20:20 | NUR ---
Midline Placement: Patient educated on need for midline placement. All risks and benefits explained and all questions and concerns addresses prior to procedure. 4Fr 20cm midline inserted via right brachial vein using Ultrasound. Sterile technique utilized. Blood return obtained from single lumen and flushed easily with NS using proper technique. Midline secured with saline lock; biodisc and occlusive dressing applied. Primary RN notified. Midline lot #[id number]. External length 0cm Internal length 20cm
--- NOTE | 2019-07-21 22:00 | NUR ---
US AT BEDSIDE
[2019-07-21 22:19] VITALS: BP 146/82
[2019-07-22] MEDS: METOPROLOL TARTRATE 25 MG TAB PO SCH ×3 (00:01→22:23)
--- NOTE | 2019-07-22 00:04 | NUR ---
ELISABETH CHOUDHURY CALLED REGARDING US BLE AND STATES PATIENT HAS DVT TO LEFT EXTREMITY AND TO NOTIFY PROVIDERS OR CRITICAL RESULT. REPEATED RESULT BACK TO DR CHOUDHURY. [facility] HOSPITALIST AWAITING CALLBACK. PATIENT CURRENTLY ON LOVENOX 30MG SQ DAILY FOR VTE. Addendum: 07/22/19 at 0029 by KATHY TAPIA RN RN RECEIVED ORDER LOVENOX 1MG/KG 100MG SQ DAILY TO BE GIVEN TOMORROW AM DOSE.
[2019-07-22] MEDS: ACCU-CHEK COMFORT CURVE STRIP VI SCH ×6 (00:57→20:28)
[2019-07-22] MEDS: HYDROcodone-ACET 5/325MG TAB PO PRN ×4 (01:21→20:29)
[2019-07-22] MEDS: CEFEPIME 1 GM in SODIUM CHL 0.9% 50 ML IV SCH ×3 (02:49→22:22)
[2019-07-22] MEDS: InsuLIN REG 1unit/0.01ml Soln (100units/ml) SC SCH ×6 (04:00→20:28)
[2019-07-22] MEDS: MORPHINE SULF INJ 2 MG/ML SYRINGE 1ML IV PRN ×3 (04:21→22:31)
[2019-07-22 05:59] VITALS: BP 145/90
[2019-07-22] MEDS: DAKINS QUARTER STR 0.125% (NaHypochlorite) 473 ML TOPICAL SOL TOP SCH ×3 (06:06→22:23)
[2019-07-22] MEDS: FUROSEMIDE 100 MG/10ML VIAL IV SCH ×2 (06:55→18:52)
[2019-07-22] MEDS: hydrALAZINE HCL 25 MG TAB PO SCH ×4 (06:55→22:23)
[2019-07-22 07:12] LABS: Basophils # (auto) 0 10 ^3/uL (0-0.2); Basophils % (auto) 0.4 % (0.0-2.0); Eosinophils # (auto) 0.2 10 ^3/uL (0-0.8); Eosinophils % (auto) 1.8 % (0.0-7.0); Hemoglobin 9.5 g/dL (12.2-16.2); Lymphocytes # (auto) 0.9 10 ^3/uL (0.4-5.4); Lymphocytes % (auto) 7.5 % (10.0-50.0); Mean Corpuscular Hemoglobin 29.1 pg (28.0-32.0); Mean Corpuscular Hgb Conc. 32.6 g/dL (32.0-36.0); Mean Corpuscular Volume 89.3 fL (80.0-100.0); Monocytes # (auto) 1.1 10 ^3/uL (0-1.3); Monocytes % (auto) 8.8 % (0.0-12.0); Neutrophils % (auto) 81.5 % (37.0-80.0); Platelet Count (auto) 264 10^3/uL (140-450); Red Blood Cells 3.25 10^6/uL (4.0-5.20); Red Cell Distribution Width 16.9 % (11.8-14.3); White Blood Cell 12.2 10^3/uL (4.4-10.8)
--- NOTE | 2019-07-22 07:20 | NUR ---
Opening Shift Note Assumed care of patient, awake and alert. No S/S of distress/SOB or pain. Updated on POC and instructed to call for assistance as needed, patient verbalized understanding. Bed locked in lowest position, side rails up x2, call light within reach, bed alarm on for safety. Will continue to monitor for changes Q1hr and PRN
[2019-07-22 07:35] LABS: BUN/Creatinine Ratio 13.4; Calcium 9.3 mg/dL (8.5-10.1); Potassium 4.4 mmol/L (3.5-5.1)
[2019-07-22] MEDS: DOCUSATE SOD 100 MG CAP PO PRN (08:09)
[2019-07-22 09:00] VITALS: BP 145/75
[2019-07-22] MEDS ORDERED: ENOXAPARIN SOD 100 MG/1 ML SYRINGE SC SCH (10:00)
[2019-07-22 14:21] VITALS: BP 144/80
--- NOTE | 2019-07-22 15:16 | NUR ---
assessment Patient is a 64 year old female who is alert and oriented. Patients cognitive abilities are intact. Prior to admission patient lived home alone and functioned with assistance. Per patient she will return home to her prior living arrangements post discharge and family will transport her home. Patient has a cane for home use. Patients PCP is Dr Coreas. Per patient she has a [facility] caregiver. Patient is on service with [facility]. Patient wants to resume with them on discharge. Patient informed me she now feels safe returning home. I informed patient she has a right to speak to a social sciences professor regarding all care. I informed patient she has a right to participate in any and all discharge planning. Patient does not have a POA and advanced directive. I have offered patient information on POA and advanced directives. I informed the patient the advantages and benefits of having an Advanced Directive. Patient verbalized understanding and agreed to discharge plan. Addendum: 07/22/19 at 1518 by Gosia WILEY Amended: Links added.
--- NOTE | 2019-07-22 16:30 | NUR ---
Patient states to come back for ACCU CHECK Patient is giving herself a sponge bath and will call when ready for blood glucose check.
[2019-07-22 16:34] VITALS: BP 151/92
--- NOTE | 2019-07-22 17:00 | NUR ---
Went to assess blood glucose, patient refusing at this time. Still giving self a sponge bath and does not want done at this time.
--- NOTE | 2019-07-22 19:00 | NUR ---
OPENING NOTE Received report from day shift RN. Patient is A&O X's 4 with no s/s of distress and reports mild pain to left foot at this time but reports not needing pain medication at this time. Educated patient on POC and that she cannot eat after midnight due to procedure planned for tomorrow. Patient verbalized understanding. Bed is in lowest/locked position with side rails up X's 2 and call light is within reach of patient. Feet are elevated on pillow. Will continue care.
[2019-07-22 22:00] VITALS: BP 167/92
[2019-07-23] MEDS: ACCU-CHEK COMFORT CURVE STRIP VI SCH ×7 (00:37→23:44)
[2019-07-23 04:09] LABS: Urine Bacteria FEW /hpf (None Seen); Urine Blood TRACE /uL (Negative); Urine WBC 1 /hpf (0 - 5)
[2019-07-23] MEDS: InsuLIN REG 1unit/0.01ml Soln (100units/ml) SC SCH ×7 (04:13→23:50)
[2019-07-23] MEDS: MORPHINE SULF INJ 2 MG/ML SYRINGE 1ML IV PRN ×3 (04:25→20:37)
[2019-07-23 05:00] VITALS: BP 161/92
[2019-07-23] MEDS: hydrALAZINE HCL 25 MG TAB PO SCH ×3 (05:51→21:41)
[2019-07-23] MEDS: FUROSEMIDE 100 MG/10ML VIAL IV SCH ×2 (05:51→18:43)
--- NOTE | 2019-07-23 06:38 | NUR ---
PAIN ASSESSMENT Patient is c/o pain to left foot. Patient described it as a burning feeling. Explained to patient that I cannot give her the Minden pill at this time because she is NPO for the procedure. Patient verbalized understanding. At this time, I elevated her feet with pillows. Will continue care.
--- NOTE | 2019-07-23 07:25 | NUR ---
Opening Shift Note Assumed care of patient, awake and alert. No S/S of distress/SOB, patient reports 6/10 left foot pain, will medicate per MD orders. Updated on POC and instructed to call for assistance as needed, patient verbalized understanding. Bed locked in lowest position, side rails up x2, call light within reach, bed alarm on for safety. Will continue to monitor for changes Q1hr and PRN
--- NOTE | 2019-07-23 07:42 | NUR ---
SPOKE WITH ROBERT WALL REGARDING PATIENT CURRENT BLOOD PRESSURE READING OF 182/91. PATIENT HAS NO PRN BLOOD PRESSURE MEDICATION. PER ROBERT WALL OKAY TO GIVE MORNING DOSE OF METOPROLOL NOW, NO FURTHER ORDERS RECEIVED.
[2019-07-23] MEDS: HYDROcodone-ACET 5/325MG TAB PO PRN ×3 (07:54→23:50)
[2019-07-23] MEDS: METOPROLOL TARTRATE 25 MG TAB PO SCH ×2 (07:55→21:39)
[2019-07-23 08:54] VITALS: BP 182/91
--- NOTE | 2019-07-23 08:55 | NUR ---
PATIENT TAKEN TO OR FOR PROCEDURE. NO DISTRESS NOTED.
[2019-07-23 09:05] LABS: Hematocrit 33.1 % (36.0-46.0); Mean Corpuscular Volume 93.3 fL (80.0-100.0); Red Blood Cells 3.55 10^6/uL (4.0-5.20)
[2019-07-23 09:06] LABS: Mean Corpuscular Hemoglobin 28.3 pg (28.0-32.0); Mean Corpuscular Hgb Conc. 30.4 g/dL (32.0-36.0); Platelet Count (auto) 316 10^3/uL (140-450); Red Cell Distribution Width 17.6 % (11.8-14.3); White Blood Cell 11.9 10^3/uL (4.4-10.8)
[2019-07-23 09:12] LABS: Basophils % (manual) 0 (0.0-2.0); Blast Cells 0; Eosinophils % (manual) 0 (0-7); Metamyelocytes % 0; Myelocytes % 0; Promyelocytes % 0; Reactive Lymphocytes 0
[2019-07-23 09:18] LABS: BUN/Creatinine Ratio 13.2; Calcium 9.8 mg/dL (8.5-10.1); Potassium 4.4 mmol/L (3.5-5.1)
[2019-07-23] MEDS ORDERED: LIDOCAINE 1% HCL (LOCAL ANESTH.) INJ 20ML MDV ONE (09:27)
[2019-07-23] MEDS ORDERED: BUPIVACAINE HCL 50 ML ONE (09:27)
[2019-07-23] MEDS ORDERED: ceFAZolin 1GM/50ML 100 ML IV ONE (09:30)
[2019-07-23] MEDS ORDERED: fentaNYL CITRATE 100 MCG/2 ML VL ONE ×3 (09:52→10:28)
[2019-07-23] MEDS ORDERED: MIDAZOLAM HCL 1MG/1ML-2 ML VIAL ONE (09:52)
[2019-07-23 09:55] LABS: Band Neutrophils % (manual) 1; Lymphocytes % (manual) 7 (10.0-50.0); Monocytes % (manual) 6 (0-12)
[2019-07-23] MEDS ORDERED: PROPOFOL 10 MG/ML 20 ML IV ONE (09:56)
[2019-07-23] MEDS: DAKINS QUARTER STR 0.125% (NaHypochlorite) 473 ML TOPICAL SOL TOP SCH ×2 (10:00→21:42)
[2019-07-23] MEDS: CEFEPIME 1 GM in SODIUM CHL 0.9% 50 ML IV SCH ×2 (10:00→21:37)
[2019-07-23] MEDS: LIDOCAINE 1% HCL (LOCAL ANESTH.) INJ 20ML MDV ONE ×2 (10:02→10:03)
[2019-07-23] MEDS ORDERED: LABETALOL HCL 5 MG/ML 4ML SYRINGE IV PRN (10:45)
[2019-07-23] MEDS ORDERED: ePHEDrine SULFATE 50 MG/ML AMP IV PRN (10:45)
[2019-07-23] MEDS ORDERED: hydrALAZINE HCL 20 MG/ML VL IV PRN (10:45)
[2019-07-23] MEDS ORDERED: HYDROmorphone HCL 2 MG/ML VL IV PRN (10:45)
[2019-07-23] MEDS ORDERED: ONDANSETRON HCL 4 MG/2 ML VIAL IV PRN (10:45)
[2019-07-23] MEDS ORDERED: HYDROmorphone HCL 2 MG/ML VL ONE (10:47)
[2019-07-23] MEDS: HYDROmorphone HCL 2 MG/ML VL IV PRN ×2 (10:48→10:58)
--- NOTE | 2019-07-23 11:40 | NUR ---
Patient back from OR following procedure. No distress or SOB noted. no pain reported or noted. Patient on 2L O2 via NC. Left foot dressing is clean, dry, and intact. Patient resting in bed comfortably. Will continue to monitor q1hr and PRN.
[2019-07-23 12:51] VITALS: BP 155/81
[2019-07-23 16:50] VITALS: BP 164/84
--- NOTE | 2019-07-23 19:30 | NUR ---
OPENING NOTE REPORT RECEIVED FROM PATRICIA RN PATIENT IS A/OX4 RESTING COMFORTABLY IN BED. NO S/S OF DISTRESS. MIDLINE TO RIGHT UPPER ARM, PATENT AND FLUSHED. DRESSING IN PLACE TO LEFT LOWER EXTREMITY, C/D/I. POC DISCUSSED WITH PATIENT, ALL QUESTIONS ANSWERED. WILL MONITOR Q1H PRN THROUGHOUT SHIFT, CALL LIGHT WITHIN REACH.
--- NOTE | 2019-07-23 20:37 | NUR ---
PAIN PATIENT C/O 7/10 PAIN TO LEFT LEG/FOOT INCISION PATIENT ASKED FOR IV MORPHINE. MORPHINE ADMINISTERED ORDERED-SEE EMAR FOR DETAILS WILL REASSESS PAIN IN 30 MINS
--- NOTE | 2019-07-23 21:07 | NUR ---
PAIN REASSESSMENT PATIENT IS SLEEPING COMFORTABLY. NO S/S OF PAIN NOTED
--- NOTE | 2019-07-23 21:10 | NUR ---
SPOKE WITH NEW TELEPHONE ORDER FOR LOVENOX FOR PATIENTS DVT WILL CARRY OUT ORDER THAT WAS PLACED BY
[2019-07-23] MEDS ORDERED: amLODIPine BESYLATE 5 MG TAB PO ONE (21:15)
[2019-07-23] MEDS: ENOXAPARIN SOD 100 MG/1 ML SYRINGE SC SCH (21:37)
[2019-07-23 22:00] VITALS: BP 135/70
--- NOTE | 2019-07-23 22:00 | NUR ---
MEDS HELD APRESOLINE HELD. PATIENTS BP 135/70, ONE TIME NORVASC GIVEN AND SCHEDULED LOPRESSOR DAKINS SOLUTION HELD PER MD HOFFMANN ORDER TO KEEP DRESSING IN PLACE FOR 24 HOURS
--- NOTE | 2019-07-23 23:50 | NUR ---
PAIN PATIENT RATES PAIN 6/10 TO LEFT FOOT INCISION NORCO ADMINISTERED ORDERED-SEE EMAR FOR DETAILS WILL REASSESS PAIN IN ONE HOUR
--- NOTE | 2019-07-24 00:50 | NUR ---
PAIN REASSESSMENT PATIENT SLEEPING. NO SIGNS OF PAIN
[2019-07-24] MEDS: InsuLIN REG 1unit/0.01ml Soln (100units/ml) SC SCH ×5 (04:00→20:00)
[2019-07-24] MEDS: ACCU-CHEK COMFORT CURVE STRIP VI SCH ×5 (04:05→20:19)
[2019-07-24 05:00] VITALS: BP 146/75
[2019-07-24] MEDS: hydrALAZINE HCL 25 MG TAB PO SCH ×3 (05:39→22:00)
[2019-07-24] MEDS: FUROSEMIDE 100 MG/10ML VIAL IV SCH ×2 (05:40→18:00)
--- NOTE | 2019-07-24 07:01 | NUR ---
CLOSING PATIENT IS RESTING COMFORTABLY IN BED. NO S/S OF DISTRESS. DRESSING TO LEFT LOWER EXTREMITY IN PLACE. CALL LIGHT WITHIN REACH. CARE ENDORSED TO DAY SHIFT RN
[2019-07-24] MEDS: MORPHINE SULF INJ 2 MG/ML SYRINGE 1ML IV PRN ×3 (07:58→17:35)
[2019-07-24 08:53] VITALS: BP 147/75
[2019-07-24] MEDS: HYDROcodone-ACET 5/325MG TAB PO PRN (09:46)
[2019-07-24] MEDS: CEFEPIME 1 GM in SODIUM CHL 0.9% 50 ML IV SCH ×2 (09:47→21:51)
[2019-07-24] MEDS: ENOXAPARIN SOD 100 MG/1 ML SYRINGE SC SCH (09:48)
[2019-07-24] MEDS: METOPROLOL TARTRATE 25 MG TAB PO SCH ×2 (09:48→21:51)
[2019-07-24] MEDS: DAKINS QUARTER STR 0.125% (NaHypochlorite) 473 ML TOPICAL SOL TOP SCH ×2 (09:48→22:00)
[2019-07-24] MEDS: amLODIPine BESYLATE 5 MG TAB PO SCH (09:48)
--- NOTE | 2019-07-24 10:01 | NUR ---
DRESSING LEFT IN PLACE Addendum: 07/24/19 at 1003 by Patricia Guadarrama RN Amended: Links added.
[2019-07-24 13:00] VITALS: BP 128/67
--- NOTE | 2019-07-24 13:11 | NUR ---
MEDICATED WITH MORPHINE FOR PAIN 8/10 IN LEFT FOOT.
[2019-07-24 16:36] VITALS: BP 114/63
--- NOTE | 2019-07-24 19:32 | NUR ---
Opening Shift Note Received report and assumed care of patient. Patient is awake and alert. No signs or symptoms of distress noted, currently denies pain. Instructed patient on plan of care and to call for assistance as needed. Will continue to monitor.
[2019-07-24 21:52] VITALS: BP 132/67
--- NOTE | 2019-07-24 22:30 | NUR ---
ASSUMED CARE OF PATIENT RECEIVED REPORT FROM ABHIJIT YOUSSEF PATIENT IS RESTING COMFORTABLY IN BED. NO S/S OF DISTRESS. PATIENT HAS MIDLINE TO RIGHT UPPER ARM RUNNING AN ANTIBIOTIC. LEFT LOWER EXTREMITY HAS A DRESSING IN PLACE, C/D/I. PATIENT NPO FOR PENDING PROCEDURE IN AM. ASKED PATIENT IF SHE NEEDED ANYTHING, PATIENT REQUESTS LIGHTS TO BE TURNED OFF SO SHE CAN SLEEP. FALL PRECAUTIONS IN PLACE, CALL LIGHT WITHIN REACH. WILL MONITOR Q1H PRN THROUGHOUT SHIFT.
--- NOTE | 2019-07-25 | NUR ---
MIDNIGHT ACCU CHECK 151 NO COVERAGE GIVEN DUE TO PATIENT NPO FOR PENDING PROCEDURE TODAY
[2019-07-25] MEDS: InsuLIN REG 1unit/0.01ml Soln (100units/ml) SC SCH ×6 (04:00→20:28)
[2019-07-25] MEDS: ACCU-CHEK COMFORT CURVE STRIP VI SCH ×6 (05:02→20:28)
[2019-07-25 05:16] VITALS: BP 138/88
[2019-07-25] MEDS: FUROSEMIDE 100 MG/10ML VIAL IV SCH ×2 (05:31→18:02)
[2019-07-25] MEDS: hydrALAZINE HCL 25 MG TAB PO SCH ×3 (05:31→22:00)
--- NOTE | 2019-07-25 06:30 | NUR ---
AT BEDSIDE DISCUSSING PROCEDURE WITH PATIENT PATIENT SIGNED CONSENTS AFTER ALL QUESTIONS ANSWERED IN GREAT LENGTH BY
[2019-07-25 06:36] LABS: Hemoglobin 9.3 g/dL (12.2-16.2)
[2019-07-25 06:39] LABS: Hematocrit 29.5 % (36.0-46.0); Mean Corpuscular Hemoglobin 29.5 pg (28.0-32.0); Mean Corpuscular Hgb Conc. 31.4 g/dL (32.0-36.0); Platelet Count (auto) 365 10^3/uL (140-450); Red Blood Cells 3.14 10^6/uL (4.0-5.20); Red Cell Distribution Width 17.6 % (11.8-14.3); White Blood Cell 7.6 10^3/uL (4.4-10.8)
--- NOTE | 2019-07-25 06:45 | NUR ---
PT TAKEN DOWN TO OR HARD CHART WITH CONSENTS AND CHECKLIST TAKEN DOWN
[2019-07-25 06:48] LABS: BUN/Creatinine Ratio 13.5; Calcium 9.7 mg/dL (8.5-10.1); Potassium 4.5 mmol/L (3.5-5.1)
[2019-07-25 06:49] LABS: Basophils % (manual) 0 (0.0-2.0); Blast Cells 0; Metamyelocytes % 0; Myelocytes % 0; Promyelocytes % 0; Reactive Lymphocytes 0
[2019-07-25] MEDS ORDERED: LIDOCAINE 1% HCL (LOCAL ANESTH.) INJ 20ML MDV ONE ×2 (06:52→07:14)
[2019-07-25] MEDS ORDERED: MIDAZOLAM HCL 1MG/1ML-2 ML VIAL ONE ×2 (06:54→09:00)
[2019-07-25] MEDS ORDERED: fentaNYL CITRATE 100 MCG/2 ML VL ONE ×2 (06:54→08:09)
[2019-07-25] MEDS ORDERED: SODIUM CHLORIDE LOCK 10 ML ONE (06:55)
[2019-07-25] MEDS ORDERED: PROPOFOL 10 MG/ML 20 ML IV ONE (06:55)
[2019-07-25] MEDS ORDERED: ONDANSETRON HCL 4 MG/2 ML VIAL ONE (06:55)
[2019-07-25] MEDS ORDERED: BACITRACIN INJ 50000 UNIT VIAL ONE (06:59)
[2019-07-25 07:04] LABS: INR 1.06 (0.9-1.15); Partial Thromboplastin Time 27.8 sec (23.64-32.05)
[2019-07-25] MEDS ORDERED: BUPIVACAINE HCL 50 ML ONE (07:15)
--- NOTE | 2019-07-25 07:22 | NUR ---
CLOSING PATIENT DOWN IN OR FOR PROCEDURE ENDORSED CARE TO AM SHIFT ABHIJIT BURKS
[2019-07-25] MEDS ORDERED: ONDANSETRON HCL 4 MG/2 ML VIAL IV PRN (07:30)
[2019-07-25] MEDS ORDERED: fentaNYL CITRATE 100 MCG/2 ML VL IV PRN (07:30)
[2019-07-25] MEDS ORDERED: HYDROmorphone HCL 2 MG/ML VL IV PRN (07:30)
[2019-07-25] MEDS ORDERED: MORPHINE SULFATE 4 MG/ML SYR/VIAL IV PRN (07:30)
[2019-07-25 07:43] LABS: Band Neutrophils % (manual) 2; Eosinophils % (manual) 1 (0-7); Lymphocytes % (manual) 20 (10.0-50.0); Monocytes % (manual) 5 (0-12)
[2019-07-25] MEDS ORDERED: LABETALOL HCL 5 MG/ML ML 20ML VIAL IV ONE (08:16)
--- NOTE | 2019-07-25 09:00 | NUR ---
patient in procedure for 0900 vitals
[2019-07-25] MEDS ORDERED: MIDAZOLAM HCL 1MG/1ML-2 ML VIAL IV ONE (09:15)
[2019-07-25] MEDS: DAKINS QUARTER STR 0.125% (NaHypochlorite) 473 ML TOPICAL SOL TOP SCH ×2 (10:00→22:00)
[2019-07-25] MEDS: CEFEPIME 1 GM in SODIUM CHL 0.9% 50 ML IV SCH (10:36)
[2019-07-25] MEDS: amLODIPine BESYLATE 5 MG TAB PO SCH (10:37)
[2019-07-25] MEDS: ENOXAPARIN SOD 100 MG/1 ML SYRINGE SC SCH (10:38)
[2019-07-25] MEDS: METOPROLOL TARTRATE 25 MG TAB PO SCH ×2 (10:38→21:57)
[2019-07-25] MEDS: MORPHINE SULF INJ 2 MG/ML SYRINGE 1ML IV PRN ×2 (12:57→17:29)
[2019-07-25] MEDS: ONDANSETRON HCL 4 MG/2 ML VIAL IV PRN (12:57)
[2019-07-25] MEDS: HYDROcodone-ACET 5/325MG TAB PO PRN ×2 (15:06→21:57)
[2019-07-25 17:16] VITALS: BP 138/80
--- NOTE | 2019-07-25 19:34 | NUR ---
Opening Shift Note Received report and assumed care of patient. Patient is awake and alert. No signs or symptoms of distress noted. Instructed patient on plan of care and to call for assistance as needed. Will continue to monitor.
[2019-07-25 21:16] VITALS: BP 127/77
--- NOTE | 2019-07-25 22:00 | NUR ---
Medication Held Held hydralazine 50mg PO. Blood pressure at this time is 124/62, HR 94. Will continue to monitor.
--- NOTE | 2019-07-25 22:30 | NUR ---
EMERITA Given Report given to ABHIJIT Carter. Addendum: 07/26/19 at 0238 by RHEA MONTES RN RN Wrong date Addendum: 07/26/19 at 0238 by RHEA MONTES RN RN Correct date 07/24/19
[2019-07-26] MEDS: InsuLIN REG 1unit/0.01ml Soln (100units/ml) SC SCH ×6 (00:30→20:00)
[2019-07-26] MEDS: ACCU-CHEK COMFORT CURVE STRIP VI SCH ×6 (00:30→20:22)
[2019-07-26] MEDS: MORPHINE SULF INJ 2 MG/ML SYRINGE 1ML IV PRN ×4 (00:31→19:46)
[2019-07-26 05:00] VITALS: BP 122/70
[2019-07-26] MEDS: hydrALAZINE HCL 25 MG TAB PO SCH ×3 (06:00→22:00)
[2019-07-26] MEDS ORDERED: ALBUTEROL SULF 2.5 MG/0.5ML(0.5%) NEB SOLN NEB SCH (06:00)
[2019-07-26 06:01] LABS: Eosinophils # (auto) 0.3 10 ^3/uL (0-0.8); Eosinophils % (auto) 4.3 % (0.0-7.0); Hematocrit 25.5 % (36.0-46.0); Hemoglobin 8.3 g/dL (12.2-16.2); Lymphocytes # (auto) 0.9 10 ^3/uL (0.4-5.4); Mean Corpuscular Hgb Conc. 32.7 g/dL (32.0-36.0); Monocytes # (auto) 0.9 10 ^3/uL (0-1.3); Monocytes % (auto) 12.2 % (0.0-12.0); White Blood Cell 7.1 10^3/uL (4.4-10.8)
[2019-07-26 06:03] LABS: Basophils # (auto) 0.1 10 ^3/uL (0-0.2); Basophils % (auto) 0.8 % (0.0-2.0); Mean Corpuscular Hemoglobin 28.8 pg (28.0-32.0); Mean Corpuscular Volume 88.3 fL (80.0-100.0); Neutrophils # (auto) 4.9 10 ^3/uL (1.6-8.6); Neutrophils % (auto) 69.7 % (37.0-80.0); Platelet Count (auto) 401 10^3/uL (140-450); Red Blood Cells 2.89 10^6/uL (4.0-5.20); Red Cell Distribution Width 17.3 % (11.8-14.3)
[2019-07-26 06:12] LABS: Potassium 4.5 mmol/L (3.5-5.1)
[2019-07-26 06:19] LABS: BUN/Creatinine Ratio 13.5; Calcium 9.8 mg/dL (8.5-10.1)
[2019-07-26] MEDS: FUROSEMIDE 100 MG/10ML VIAL IV SCH ×2 (06:24→17:45)
--- NOTE | 2019-07-26 06:28 | NUR ---
Shortness of breath Patient complaining of pain under right breast and radiating to back. Patient denies chest pain. Patient states feeling short of breath. Patient vital signs BP 130/66, Heart rate 77, RR 20, O2 98% on 2 L nasal cannula, lungs clear to auscultation. No new changes in EKG. Patient received morphine for pain at 0435, not due at this time, patient states she does not want norco. Repositioned patient with pillow for comfort. Moi Hospitalist. Received new orders for troponin lab draw and albuterol 2.5mg q6hr while awake. Orders read back and verified, will carry out.
[2019-07-26] MEDS ORDERED: ALBUTEROL SULF 2.5 MG/0.5ML(0.5%) NEB SOLN NEB PRN (07:30)
--- NOTE | 2019-07-26 07:30 | NUR ---
Opening Shift Note Assumed care of patient, awake and alert. No S/S of distress/SOB or pain. For safety, patients bed is locked, in the lowest position, with 2 side rails up and the call light with in reach. Instructed on POC and to call for assist PRN, will continue to monitor for changes in condition.
[2019-07-26] MEDS: HYDROcodone-ACET 5/325MG TAB PO PRN ×3 (08:28→22:40)
[2019-07-26 09:00] VITALS: BP 115/55
[2019-07-26] MEDS: METOPROLOL TARTRATE 25 MG TAB PO SCH ×2 (10:00→22:15)
[2019-07-26] MEDS: amLODIPine BESYLATE 5 MG TAB PO SCH (10:00)
[2019-07-26 10:41] VITALS: BP 115/55
[2019-07-26] MEDS: CEFEPIME 1 GM in SODIUM CHL 0.9% 50 ML IV SCH (10:50)
[2019-07-26] MEDS: ENOXAPARIN SOD 100 MG/1 ML SYRINGE SC SCH (10:52)
[2019-07-26 13:00] VITALS: BP 111/60
--- NOTE | 2019-07-26 13:42 | NUR ---
Dr. Wilson at bedside to assess and discuss plan of care with patient. Addendum: 07/27/19 at 1816 by MYRA LOZANO RN RN TIME OF NOTE IS 1010
--- NOTE | 2019-07-26 14:58 | NUR ---
Nutrition Follow-up Note Wt.: 104.3 kg Pt is on CCHO 60g diet with good PO intake aeb avg 94% intake over 4 meals. Will monitor PO intake, weight trend, pertinent labs, and skin integrity and f/u in 3 to 5 days. Est. Energy Needs: 9193-0697 kcal (17-20 kcal/kg BW). Est. Protein Needs: 89-111 gms/day (1.2-1.5 gms/kg Adj.BW). Labs 07/25: BUN 35 H, Cr 2.60 H, Glucose 114 H, POC 150 H Skin: Shaun scale 17, mod risk, L foot open blister/ulceration. GI: Pt had BM on 07/24/19 per rail car operator. PES: 1) Altered nutrition related lab values r/t current medical condition aeb elevated RFTs, hyperglycemia, hypoalbuminemia, hypertriglyceridemia 2) Obese, Class I r/t excessive energy intake prior to admission aeb BMI 34.8 kg/m2 and 163% IBW Recommendations: 1) Suggest Prostat 1 pkt BID, Vitamin C 500 mg BID, daily MVi with minerals tab 2) Continue close supervision and feeding assistance prn during meals. 3) Refer to RD for further nutrition education and weight monitoring upon discharge. 4) Continue current plan of care.
[2019-07-26 17:00] VITALS: BP 121/76
--- NOTE | 2019-07-26 19:35 | NUR ---
Opening Shift Note Assumed care of patient, awake and alert. No S/S of distress/SOB. The patient c/o left leg pain and requested pain medication. Will treat with PRN medication. Instructed on POC and to call for assist PRN, will continue to monitor for changes Q1hr and PRN.
[2019-07-26 22:00] VITALS: BP 113/70
[2019-07-27] MEDS: MORPHINE SULF INJ 2 MG/ML SYRINGE 1ML IV PRN ×2 (02:45→08:58)
[2019-07-27] MEDS: InsuLIN REG 1unit/0.01ml Soln (100units/ml) SC SCH ×6 (04:00→20:27)
[2019-07-27] MEDS: ACCU-CHEK COMFORT CURVE STRIP VI SCH ×6 (04:45→20:27)
[2019-07-27 05:00] VITALS: BP 120/61
[2019-07-27] MEDS: hydrALAZINE HCL 25 MG TAB PO SCH ×3 (06:00→22:00)
[2019-07-27] MEDS: FUROSEMIDE 100 MG/10ML VIAL IV SCH ×2 (06:45→17:50)
[2019-07-27 07:53] LABS: Basophils # (auto) 0 10 ^3/uL (0-0.2); Basophils % (auto) 0.7 % (0.0-2.0); Eosinophils # (auto) 0.3 10 ^3/uL (0-0.8); Eosinophils % (auto) 5.4 % (0.0-7.0); Hematocrit 26.8 % (36.0-46.0); Hemoglobin 8.6 g/dL (12.2-16.2); Lymphocytes # (auto) 0.8 10 ^3/uL (0.4-5.4); Lymphocytes % (auto) 15.3 % (10.0-50.0); Mean Corpuscular Hemoglobin 28.9 pg (28.0-32.0); Mean Corpuscular Hgb Conc. 32.3 g/dL (32.0-36.0); Mean Corpuscular Volume 89.6 fL (80.0-100.0); Monocytes # (auto) 0.7 10 ^3/uL (0-1.3); Monocytes % (auto) 13.5 % (0.0-12.0); Neutrophils # (auto) 3.6 10 ^3/uL (1.6-8.6); Neutrophils % (auto) 65.1 % (37.0-80.0); Nucleated Red Blood Cells % 0.1 %; Platelet Count (auto) 389 10^3/uL (140-450); Red Blood Cells 2.98 10^6/uL (4.0-5.20); Red Cell Distribution Width 17.3 % (11.8-14.3); White Blood Cell 5.5 10^3/uL (4.4-10.8)
[2019-07-27 08:13] LABS: BUN/Creatinine Ratio 12.4; Calcium 9.9 mg/dL (8.5-10.1); Potassium 4.9 mmol/L (3.5-5.1)
[2019-07-27] MEDS: ONDANSETRON HCL 4 MG/2 ML VIAL IV PRN (08:59)
[2019-07-27 09:00] VITALS: BP 136/69
--- NOTE | 2019-07-27 10:00 | NUR ---
WOUND CARE NOTE: IN TO SEE PATIENT AT THIS TIME FOR SKIN INTEGRITY/WOUND REEVALUATION. SINCE LAST EXAM, PATIENT HAS HAD SURGERY WITH DR. GTZ TWO DAYS AGO. PATIENT UNDERWENT I&D ABSCESSES TO THREE AREAS OF LEFT DORSAL FOOT, AND LEFT ANTERIOR/LATERAL CALF. SURGEON HAS PLACED ORDER FOR EOD/PRN DRESSING CHANGE ORDER USING IODAFORM PACKING, BETADINE WET TO DRY GAUZE, LIGHT KERLIX/JOHNNA WRAP. WOUND PHOTOS TAKEN WITH MEASUREMENTS OF POST I&D WOUNDS. PATIENT PREMEDICATED FOR PAIN WITH IV MORPHINE BY BEDSIDE NURSE. ALL DRESSINGS/PACKING REMOVED. ALL NECROTIC TISSUE REMOVED, LIGHT SEROSANGUINOUS DRAINAGE NOTED WITHIN WOUND BED. CLEANSED WOUNDS WITH NS, PATTED DRY WITH STERILE GAUZE. GENTLY PACKED WOUND WITH 1 INCH OR 1/4 INCH IODAFORM, PLACED BETADINE WET TO DRY GAUZE DRESSINGS OVER ALL 4 WOUNDS. GENTLY WRAPPED FOOT/CALF WITH LARGE KERLIX X 2, WRAPPED WITH LOOSE JOHNNA WRAP. ELEVATED PATIENT'S LEFT FOOT UP ONTO PILLOWS FOR EDEMA CONTROL. OF NOTE, DR. CROWELL AT BEDSIDE TO VISUALIZE WOUNDS. NO OTHER SKIN INTEGRITY ISSUES SEEN AT THIS TIME. RECOMMEND: EOD/PRN DRESSING CHANGE TO LEFT FOOT/CALF BY BEDSIDE NURSE, ELEVATION OF LEFT FOOT ON PILLOWS, CONTINUATION WITH ALL OTHER WOUND CARE ORDERS PREVIOUSLY PRESCRIBED BY MD. WOUND CARE TEAM WILL CONTINUE TO MONITOR. Addendum: 07/27/19 at 1713 by Gin Resendez RN Amended: Links added.
[2019-07-27] MEDS ORDERED: MORPHINE SULF INJ 2 MG/ML SYRINGE 1ML IV ONE (10:45)
--- NOTE | 2019-07-27 10:45 | NUR ---
DR. CROWELL AT BEDSIDE WITH WOUND CARE NURSE JAMAAL. GAVE ONE TIME ORDER FOR MORPHINE 2MG IV FOR PAIN DURING POST OP WOUND CARE. COMPLETED WOUND CARE WITH JAMAAL PER DR. GTZ ORDERS. PATIENT TOLERATED WELL AFTER MORPHINE GIVEN.
[2019-07-27] MEDS: CEFEPIME 1 GM in SODIUM CHL 0.9% 50 ML IV SCH (11:19)
[2019-07-27] MEDS: ENOXAPARIN SOD 100 MG/1 ML SYRINGE SC SCH (11:20)
[2019-07-27] MEDS: amLODIPine BESYLATE 5 MG TAB PO SCH (11:20)
[2019-07-27] MEDS: METOPROLOL TARTRATE 25 MG TAB PO SCH (11:20)
[2019-07-27] MEDS: Glucerna Carbsteady SHAKE Vanilla 8oz PO SCH ×2 (12:44→17:50)
[2019-07-27 13:00] VITALS: BP 131/65
[2019-07-27] MEDS: HYDROcodone-ACET 5/325MG TAB PO PRN (16:59)
[2019-07-27 17:00] VITALS: BP 129/56
--- NOTE | 2019-07-27 19:15 | NUR ---
Opening Shift Note Assumed care of patient, awake and alert. No S/S of distress/SOB or pain. Instructed on POC and to call for assist PRN, will continue to monitor for changes Q1hr and PRN.
[2019-07-27 22:00] VITALS: BP 121/60
--- NOTE | 2019-07-27 22:52 | NUR ---
Respiratory note: Respiratory note: PT SEEN AND ASSESSED FOR PRN MED NEB TX AT 2252. TX IS NOT INDICATED AT THIS TIME. PT DISPLAYING NO SIGNS OF RESPIRATORY DISTRESS. HR 82 RR 18 POX 98% ON ROOM AIR. PT AWARE TO CALL FOR RT IF ANY DISTRESS OCCUR
[2019-07-28] MEDS: METOPROLOL TARTRATE 25 MG TAB PO SCH ×3 (01:53→22:25)
[2019-07-28] MEDS: ACCU-CHEK COMFORT CURVE STRIP VI SCH ×6 (04:00→22:29)
[2019-07-28 04:32] LABS: Basophils # (auto) 0.1 10 ^3/uL (0-0.2); Basophils % (auto) 1.4 % (0.0-2.0); Eosinophils # (auto) 0.3 10 ^3/uL (0-0.8); Eosinophils % (auto) 4.5 % (0.0-7.0); Hematocrit 27.3 % (36.0-46.0); Hemoglobin 8.8 g/dL (12.2-16.2); Lymphocytes # (auto) 0.9 10 ^3/uL (0.4-5.4); Lymphocytes % (auto) 15.6 % (10.0-50.0); Mean Corpuscular Hgb Conc. 32.3 g/dL (32.0-36.0); Monocytes # (auto) 0.8 10 ^3/uL (0-1.3); Monocytes % (auto) 14.3 % (0.0-12.0); Neutrophils # (auto) 3.7 10 ^3/uL (1.6-8.6); Neutrophils % (auto) 64.2 % (37.0-80.0); Nucleated Red Blood Cells % 0.1 %; Platelet Count (auto) 396 10^3/uL (140-450); Red Blood Cells 3.03 10^6/uL (4.0-5.20); Red Cell Distribution Width 17.4 % (11.8-14.3); White Blood Cell 5.7 10^3/uL (4.4-10.8)
[2019-07-28] MEDS: InsuLIN REG 1unit/0.01ml Soln (100units/ml) SC SCH ×6 (04:32→20:00)
[2019-07-28 04:53] LABS: BUN/Creatinine Ratio 12.8; Calcium 10.2 mg/dL (8.5-10.1); Potassium 4.9 mmol/L (3.5-5.1)
[2019-07-28 05:56] VITALS: BP 141/66
[2019-07-28] MEDS: FUROSEMIDE 100 MG/10ML VIAL IV SCH ×2 (06:00→18:11)
[2019-07-28] MEDS: MORPHINE SULF INJ 2 MG/ML SYRINGE 1ML IV PRN ×3 (06:15→15:20)
[2019-07-28] MEDS: hydrALAZINE HCL 25 MG TAB PO SCH ×3 (06:18→22:00)
--- NOTE | 2019-07-28 07:30 | NUR ---
Opening Note Assumed patient care from GUERA RN.
[2019-07-28] MEDS: Glucerna Carbsteady SHAKE Vanilla 8oz PO SCH ×3 (08:00→18:00)
[2019-07-28 09:00] VITALS: BP 139/74
--- NOTE | 2019-07-28 09:48 | NUR ---
Respiratory note: ASSESSED PT FOR PRN BREATHING TX. PT IS AWAKE AND ALERT. NO S/S OF RESPIRATORY DISTRESS. PT IS CURRENTLY WEARING 2 L NASAL CANNULA, SPO2 98%, HR 84, RR 16. PT IS AWARE TO HAVE RT PAGED IF BREATHING TX IS NEEDED. WILL CONTINUE TO MONITOR PT.
--- NOTE | 2019-07-28 10:15 | NUR ---
Pain Patient requested morphine for 10/10 pain of left lower extremity. Morphine 2mg administered via IV. Will continue to monitor.
--- NOTE | 2019-07-28 10:30 | NUR ---
at bedside Dr. Neville at bedside discussing plan of care with patient.
[2019-07-28] MEDS: amLODIPine BESYLATE 5 MG TAB PO SCH (10:51)
[2019-07-28] MEDS: ENOXAPARIN SOD 100 MG/1 ML SYRINGE SC SCH (10:51)
[2019-07-28] MEDS: CEFEPIME 1 GM in SODIUM CHL 0.9% 50 ML IV SCH (11:08)
[2019-07-28] MEDS: HYDROcodone-ACET 5/325MG TAB PO PRN ×2 (12:10→18:12)
[2019-07-28 13:00] VITALS: BP 139/60
--- NOTE | 2019-07-28 13:00 | NUR ---
Dressing Change Right upper arm midline dressing change done using sterile technique. Patient tolerated well, no signs of distress at this time. Safety precautions in place, will continue to monitor.
--- NOTE | 2019-07-28 14:08 | NUR ---
Enrique Spoke with Dr. Nunez from [facility]. Patient to have nephro consult, urinalysis to be obtained. Will carry out new orders.
--- NOTE | 2019-07-28 16:10 | NUR ---
Paged Dr. Nunez Renal ultrasound to be cancelled due to last renal US done on 07/14.
[2019-07-28 16:55] VITALS: BP 127/70
--- NOTE | 2019-07-28 17:57 | NUR ---
Morphine 1520 Patient given 2mg IV Morphine for 10/10 pain. Med did not save to EMAR.
--- NOTE | 2019-07-28 18:00 | NUR ---
Morphine Reassessment Morphine 2 mg administration reassessment: patient currently 12/07 pain on left leg. No signs of distress at this time. Safety precautions in place. Will continue to monitor. Addendum: 07/28/19 at 1804 by YAMILKA DELGADO RN RN Reassessment done at 1550
--- NOTE | 2019-07-28 18:44 | NUR ---
Urinalysis Patient offered bedpan for urine sample. Patient aware of need for urine sample, stated she currently does not need to urinate but will call station when she does. Specimen cup and new bedpan at bedside. If patient does not urinate before shift change, will endorse to maintenance technician 3rd shift.
--- NOTE | 2019-07-28 19:05 | NUR ---
Closing Note Report given to NOC RN. Patient is currently sitting up in bed, no signs of distress at this time. Safety precautions in place.
--- NOTE | 2019-07-28 19:15 | NUR ---
Opening Shift Note Assumed care of patient, awake and alert. No S/S of distress/SOB. The patient c/o left foot pain but did not request any medication at this time. Instructed on POC and to call for assist PRN, will continue to monitor for changes Q1hr and PRN.
--- NOTE | 2019-07-28 19:45 | NUR ---
URINE COLLECTED Urine has been collected and sent to the lab by the SASH INSTALLER.
[2019-07-28 22:00] VITALS: BP 133/66
[2019-07-28 22:05] LABS: Protein, Urine 205.9 mg/dL (0.0-11.9)
[2019-07-29] MEDS: InsuLIN REG 1unit/0.01ml Soln (100units/ml) SC SCH ×6 (00:21→21:30)
[2019-07-29] MEDS: MORPHINE SULF INJ 2 MG/ML SYRINGE 1ML IV PRN ×3 (02:15→22:44)
--- NOTE | 2019-07-29 02:15 | NUR ---
PAIN ASSESSMENT The patient reported feeling severe leg foot pain which she rates as 10/10. Will treat with PRN pain medication and reassess.
[2019-07-29] MEDS: ACCU-CHEK COMFORT CURVE STRIP VI SCH ×6 (04:00→21:30)
[2019-07-29 05:00] VITALS: BP 147/77
[2019-07-29 05:45] LABS: Basophils # (auto) 0.1 10 ^3/uL (0-0.2); Basophils % (auto) 1.2 % (0.0-2.0); Eosinophils # (auto) 0.2 10 ^3/uL (0-0.8); Eosinophils % (auto) 4.5 % (0.0-7.0); Hematocrit 28.3 % (36.0-46.0); Hemoglobin 8.9 g/dL (12.2-16.2); Lymphocytes # (auto) 0.8 10 ^3/uL (0.4-5.4); Lymphocytes % (auto) 16.4 % (10.0-50.0); Mean Corpuscular Hemoglobin 28.5 pg (28.0-32.0); Mean Corpuscular Hgb Conc. 31.5 g/dL (32.0-36.0); Mean Corpuscular Volume 90.5 fL (80.0-100.0); Monocytes # (auto) 0.5 10 ^3/uL (0-1.3); Monocytes % (auto) 10.5 % (0.0-12.0); Neutrophils # (auto) 3.4 10 ^3/uL (1.6-8.6); Neutrophils % (auto) 67.4 % (37.0-80.0); Nucleated Red Blood Cells % 0.1 %; Platelet Count (auto) 418 10^3/uL (140-450); Red Blood Cells 3.13 10^6/uL (4.0-5.20); Red Cell Distribution Width 17.1 % (11.8-14.3)
[2019-07-29] MEDS: hydrALAZINE HCL 25 MG TAB PO SCH ×3 (06:00→21:34)
[2019-07-29] MEDS: FUROSEMIDE 100 MG/10ML VIAL IV SCH ×2 (06:00→18:18)
[2019-07-29 06:02] LABS: Calcium 9.8 mg/dL (8.5-10.1)
--- NOTE | 2019-07-29 06:25 | NUR ---
ASSESSMENT The patient reports feeling dizzy. She describes the dizziness as if her "head is spinning". The patient states that she has a history of dizziness at home. MD has been informed. Will continue to monitor the patient's status.
--- NOTE | 2019-07-29 07:29 | NUR ---
PAGED The patient states that she is still experiencing dizziness. MD has been informed. New order has been received.
[2019-07-29] MEDS ORDERED: MECLIZINE HCL 25 MG TAB PO ONE (07:30)
--- NOTE | 2019-07-29 07:30 | NUR ---
Opening Note Assumed patient care from GUERA RN.
[2019-07-29] MEDS: Glucerna Carbsteady SHAKE Vanilla 8oz PO SCH ×3 (08:00→18:00)
[2019-07-29 09:00] VITALS: BP 147/70
[2019-07-29 09:19] VITALS: BP 147/70
[2019-07-29] MEDS: ENOXAPARIN SOD 100 MG/1 ML SYRINGE SC SCH (10:36)
[2019-07-29] MEDS: amLODIPine BESYLATE 5 MG TAB PO SCH (10:37)
[2019-07-29] MEDS: METOPROLOL TARTRATE 25 MG TAB PO SCH ×2 (10:38→21:34)
--- NOTE | 2019-07-29 10:46 | NUR ---
at bedside Dr. Johnson at bedside discussing plan of care with patient. Dr. Johnson recommends discharge to SNF for continued wound care. Will carry out new orders.
[2019-07-29] MEDS ORDERED: DEXTROSE (50%) 50ML SYRG IV PRN (11:00)
[2019-07-29] MEDS ORDERED: levoFLOXacin 250MG 50 ML IV ONE (11:00)
[2019-07-29] MEDS: HYDROcodone-ACET 5/325MG TAB PO PRN (11:32)
[2019-07-29] MEDS ORDERED: levoFLOXacin 500MG 100 ML IV ONE (12:00)
--- NOTE | 2019-07-29 12:00 | NUR ---
Dressing Change Patient premedicated with [place] and morphine prior to dressing change. Dressing change done according to MD orders. Mike wrap applied loosely per MD request. Patient complained of pain during dressing change but was encouraged to deep breathe; overall, patient tolerated well. robotics software engineer, Deepali, assisted with dressing change. Patient sitting up in bed with no signs of distress at this time, safety precautions in place and call light within reach, patient encouraged to call if she needs any assistance. Will continue to monitor.
--- NOTE | 2019-07-29 12:00 | NUR ---
Wound care note: Assisted bedside nurse to do dressing change to patient's LLE wounds.Patient premedicated for pain by Eunice Falk prior dressing change. Patient tolerated well. Eunice Falk at bedside.
--- NOTE | 2019-07-29 13:20 | NUR ---
SNF Per Gosia's request, patient asked preference for SNF placement. Patient requesting to speak with son before making a decision on company and whether she wants to be discharged to SNF. Will follow up after patient discusses with family.
--- NOTE | 2019-07-29 13:44 | NUR ---
Family Per patient request, spoke with son Kiko about SNF placement to explain rationale for placement.
--- NOTE | 2019-07-29 13:52 | NUR ---
Patient/SNF Discussed plan of care with patient. Patient asked why MD is recommending SNF placement. Explained to patient need for placement and for continued wound care. All questions were answered. Patient informed that son requested [facility], patient is agreeable to this. Will notify rifle case repairer. Patient is currently showing no signs of distress at this time, safety precautions in place, will continue to monitor.
--- NOTE | 2019-07-29 14:00 | NUR ---
Notified SS Spoke with Gosia regarding patient and son agreeing to SNF placement and requesting [facility].
--- NOTE | 2019-07-29 14:22 | NUR ---
re-assessment Per consult dc to SNF. Patient and family agree to SNF for wound care. Patient and her son request [facility]. MD order has been sent to [facility]. Waiting for reply back now. Addendum: 07/29/19 at 1424 by Gosia Mattson Amended: Links added.
[2019-07-29 14:32] VITALS: BP 153/77
--- NOTE | 2019-07-29 15:45 | NUR ---
Patient Rounds Patient is currently sitting up in bed speaking on phone with son. No signs of distress at this time, safety precautions in place, will continue to monitor.
[2019-07-29 17:11] VITALS: BP 146/75
--- NOTE | 2019-07-29 19:07 | NUR ---
Closing Note Report given to GUERA LACEY
--- NOTE | 2019-07-29 19:30 | NUR ---
OPENING NOTE Received report from day shift RN. Patient is A&O X's 4 with no s/s of distress noted. Patient complaining of some pain to left foot wound at this time. Educated patient on pain medication and management. Patient verbalized understanding. Wound dressing to left foot is C/D/I and elevated on a pillow. Educated patient on POC and to use call light when in need of assistance. Patient verbalized understanding. Bed is in lowest/locked position with side rails up X's 2 and call light is within reach of patient. Will continue care.
--- NOTE | 2019-07-29 21:30 | NUR ---
PAIN REASSESSMENT Patient reports no pain at this time. Will continue care.
[2019-07-29 21:48] VITALS: BP 142/69
--- NOTE | 2019-07-29 23:20 | NUR ---
REPORT GIVEN TO ABHIJIT BATISTA
--- NOTE | 2019-07-29 23:20 | NUR ---
Opening Shift Note Assumed care of patient, awake and alert. No S/S of distress/SOB or pain. Instructed on POC and to call for assist PRN, will continue to monitor for changes Q1hr and PRN. bed in low position and call light within reach. bed alarm on
--- NOTE | 2019-07-29 23:20 | NUR ---
Opening Shift Note Assumed care of patient, awake and alert. No S/S of distress/SOB or pain. Instructed on POC and to call for assist PRN, will continue to monitor for changes Q1hr and PRN. bed in low position call light within reach.bed alarm on.
--- NOTE | 2019-07-29 23:22 | NUR ---
PAIN REASSESSMENT patient comfortable in bed and reports no pain at this time. care endorsed to ABHIJIT robertson.
[2019-07-30 05:00] VITALS: BP 115/81
[2019-07-30] MEDS: hydrALAZINE HCL 25 MG TAB PO SCH ×3 (05:31→22:20)
[2019-07-30] MEDS: MORPHINE SULF INJ 2 MG/ML SYRINGE 1ML IV PRN ×2 (05:31→10:39)
[2019-07-30] MEDS: FUROSEMIDE 100 MG/10ML VIAL IV SCH (05:32)
--- NOTE | 2019-07-30 05:32 | NUR ---
patient reported pain 7/10 to left foot. patient medicated per protocol see emar.
--- NOTE | 2019-07-30 06:01 | NUR ---
pain reassessment patient is sleeping . no signs of sob,distress or pain.
[2019-07-30 06:02] LABS: Calcium 10.2 mg/dL (8.5-10.1); Potassium 4.9 mmol/L (3.5-5.1)
[2019-07-30 06:04] LABS: BUN/Creatinine Ratio 11.9
[2019-07-30] MEDS: InsuLIN REG 1unit/0.01ml Soln (100units/ml) SC SCH ×4 (06:20→22:21)
[2019-07-30] MEDS: ACCU-CHEK COMFORT CURVE STRIP VI SCH ×4 (06:21→22:20)
--- NOTE | 2019-07-30 06:58 | NUR ---
patient rounds patient is in bed sleeping. shows no signs of sob/distress or pain. bed in low position and call light within reach
--- NOTE | 2019-07-30 07:02 | NUR ---
OPENING SHIFT NOTE Assumed care of patient from warehouse supervisor 3rd shift RN. Patient os alert and oriented x4, no signs of distress noted, patient denies pain. Patient was update don the plan of care and patient stated "I do not want to go to [facility] I want to go home." Patient was educated on the discharge plan to go to SNF for wound care, Patient verbalized understanding and continued to state she "wanted to go home". Bed is locked, in the lowest position, side rails up x2 and call light is in reach. Patient was encouraged to call for assistance as needed.
--- NOTE | 2019-07-30 07:34 | NUR ---
REPORT GIVEN TO DAYSHIFT RN PATIENT DENIES SOB DISTRESS OR PAIN. DRESSING TO LEFT FOOT INTACT/CLEAN DRY.
[2019-07-30] MEDS: Glucerna Carbsteady SHAKE Vanilla 8oz PO SCH ×3 (08:00→18:00)
--- NOTE | 2019-07-30 09:08 | NUR ---
SNF order faxed to [facility]-requesting authorization for [facility].
[2019-07-30 09:17] VITALS: BP 126/68
--- NOTE | 2019-07-30 10:18 | NUR ---
SELVIN AT BEDSIDE New orders for wound care: Change wound dressing bid with 1" packing, wet to dry with 1/4 Dakin's solution and 4x4 wrap with Kerlix, light compression.
[2019-07-30] MEDS: levoFLOXacin 250MG 50 ML IV SCH (10:37)
[2019-07-30] MEDS: METOPROLOL TARTRATE 25 MG TAB PO SCH ×2 (10:38→22:20)
[2019-07-30] MEDS: amLODIPine BESYLATE 5 MG TAB PO SCH (10:38)
[2019-07-30] MEDS: ENOXAPARIN SOD 100 MG/1 ML SYRINGE SC SCH (10:39)
--- NOTE | 2019-07-30 10:50 | NUR ---
PRACHI AT BEDSIDE updated on patient status. Plan of care reviewed with patient and she verbalized understanding/ No new orders received.
[2019-07-30] MEDS: HYDROcodone-ACET 5/325MG TAB PO PRN ×2 (12:31→20:59)
[2019-07-30 12:41] VITALS: BP 134/70
--- NOTE | 2019-07-30 13:55 | NUR ---
Nutrition Follow-up Note Wt: 101.4 kg Pt is on CCHO 60g diet with good PO intake aeb avg 81% intake over 9 meals. Will monitor PO intake, weight trend, pertinent labs, and skin integrity and f/u in 3 to 5 days. Est. Energy Needs: 0205-4095 kcal (17-20 kcal/kg BW). Est. Protein Needs: 89-111 gms/day (1.2-1.5 gms/kg Adj.BW). Labs 07/29: Anion gap 4 L, BUN 35 H, Cr 2.95 H, Glucose 157 H Skin: Shaun scale 17, mod risk, s/p I&D L foot. PES: 1) Altered nutrition related lab values r/t current medical condition aeb elevated RFTs, hyperglycemia, hypoalbuminemia, hypertriglyceridemia 2) Obese, Class I r/t excessive energy intake prior to admission aeb BMI 34.8 kg/m2 and 163% IBW Recommendations: 1) Suggest Prostat 1 pkt BID, Vitamin C 500 mg BID, daily MVi with minerals tab 2) Continue close supervision and feeding assistance prn during meals. 3) Refer to RD for further nutrition education and weight monitoring upon discharge. 4) Continue current plan of care.
--- NOTE | 2019-07-30 14:24 | NUR ---
RT NOTE: NO TX INDICATED AT THIS TIME. NO SIGNS OF RESPIRATORY DISTRESS. LUNG SOUNDS CLEAR/DIMINISHED. ON 2LNC SPO2 99 HR 76 RR 20. PT AWARE TO CALL FOR RESPIRATORY IF NEED FOR TX ARISES. WILL CONTINUE TO MONITOR.
[2019-07-30 16:21] VITALS: BP 123/54
--- NOTE | 2019-07-30 17:15 | NUR ---
FAMILY CALLED Son Grey called, after verifying password he was updated on the plan of care and verbalized understanding. All questions answered.
--- NOTE | 2019-07-30 19:06 | NUR ---
CLOSING SHIFT NOTE Care endorsed to early childhood worker RN. Patient is eating dinner, no signs of distress noted.
--- NOTE | 2019-07-30 19:45 | NUR ---
Opening Shift Note Assumed care of patient, awake and alert. No S/S of distress/SOB or pain. dressing in place. patient has a scab to her left buttock Optifoam placed. Instructed on POC and to call for assist PRN, will continue to monitor for changes Q1hr and PRN. bed in low position and call light within reach. bed alarm on
--- NOTE | 2019-07-30 20:00 | NUR ---
Respiratory note: ASSESSMENT FOR PRN MED NEB TX. HR 83, SPO2 97% ON ROOM AIR, RR 16, BS CLEAR/DIMINISHED. PT PRESENTING NO RESPIRATORY DISTRESS AT THIS TIME. PT AWARE TO HAVE RT PAGED IF NEEDED, WILL CONTINUE TO MONITOR.
--- NOTE | 2019-07-30 20:59 | NUR ---
patient reports 4/10 pain to her left foot. patient medicated per protocol see emar
--- NOTE | 2019-07-30 21:59 | NUR ---
pain reassessment pain 0/10 to her left foot.
[2019-07-30 22:00] VITALS: BP 144/70
--- NOTE | 2019-07-30 22:00 | NUR ---
DRESSING CHANGE PATIENT REFUSAL Informed patient about new orders from MD MONTALVO. dressing change to be done twice a day. patient educated on benefits of having a dressing change. Patient was medicated for pain earlier during the shift. patient verbalized " i do not have pain, i do not know, i do not want it to hurt." educated patient that there is another prn medication for pain available if needed and that i would be gentle when performing dressing change. patient stated " no i do not want to much pain medication." patient reeducated patient verbalized refusal. Will attempt to perform dressing change later if patient allows.
[2019-07-30] MEDS: APIXABAN 2.5 MG TAB PO SCH (22:19)
[2019-07-31 05:00] VITALS: BP 134/66
[2019-07-31] MEDS: hydrALAZINE HCL 25 MG TAB PO SCH ×2 (06:31→14:43)
[2019-07-31] MEDS: ACCU-CHEK COMFORT CURVE STRIP VI SCH ×2 (06:37→11:10)
[2019-07-31] MEDS: InsuLIN REG 1unit/0.01ml Soln (100units/ml) SC SCH ×2 (06:38→15:43)
--- NOTE | 2019-07-31 06:47 | NUR ---
patient rounds patient educated on dressing change per md orders informed patient and educated patient that pain medication is available to help relieve pain. patient verbalized refusal and stated " i want something to numb it" patient reeducated of pain medication available to alleviate pain while dressing change is done. patient refused. will endorse care to dayshift rn.
--- NOTE | 2019-07-31 07:22 | NUR ---
REPORT GIVEN TO DAYSHIFT RN. PATIENT DENIES SOB DISTRESS OR PAIN
--- NOTE | 2019-07-31 08:15 | NUR ---
Respiratory note: ASSESSMENT FOR PRN MED NEB TX. HR 79, SPO2 99% ON 2L NC, RR 16, BS CLEAR/DIMINISHED. PT PRESENTING NO RESPIRATORY DISTRESS AT THIS TIME. PT AWARE TO HAVE RT PAGED IF NEEDED, WILL CONTINUE TO MONITOR.
[2019-07-31 09:00] VITALS: BP 135/67
[2019-07-31] MEDS ORDERED: CHOLECALCIFEROL (VITD3) 1,000IU=25mCg TAB PO SCH (10:00)
[2019-07-31] MEDS: levoFLOXacin 250MG 50 ML IV SCH (10:30)
[2019-07-31] MEDS: Glucerna Carbsteady SHAKE Vanilla 8oz PO SCH (11:07)
[2019-07-31] MEDS: APIXABAN 2.5 MG TAB PO SCH (11:08)
[2019-07-31] MEDS: METOPROLOL TARTRATE 25 MG TAB PO SCH (11:09)
[2019-07-31] MEDS: amLODIPine BESYLATE 5 MG TAB PO SCH (11:10)
[2019-07-31] MEDS: HYDROcodone-ACET 5/325MG TAB PO PRN (11:15)
--- NOTE | 2019-07-31 11:16 | NUR ---
Nutrition Consult Note Wt: 101.8 kg Pt is on now on Renal Standard (2g Na, 3g K, Low Phos) diet with good PO intake aeb avg 100% intake over 2 meals. Received nutrition consult for diet order. Provided relevant nutrition education. Will monitor PO intake, weight trend, pertinent labs, and skin integrity and f/u in 3 to 5 days. Est. Energy Needs: 3343-6745 kcal (17-20 kcal/kg BW). Est. Protein Needs: 89-111 gms/day (1.2-1.5 gms/kg Adj.BW). Labs: No new labs PES: 1) Altered nutrition related lab values r/t current medical condition aeb elevated RFTs, hyperglycemia, hypoalbuminemia, hypertriglyceridemia 2) Obese, Class I r/t excessive energy intake prior to admission aeb BMI 34.8 kg/m2 and 163% IBW Recommendations: 1) Suggest Prostat 1 pkt BID, Vitamin C 500 mg BID, daily MVi with minerals tab 2) Continue close supervision and feeding assistance prn during meals. 3) Refer to RD for further nutrition education and weight monitoring upon discharge. 4) Continue current plan of care.
--- NOTE | 2019-07-31 11:33 | NUR ---
I received a call from Faith at [facility] letting me know that she is in the process of creating the authorization for [facility], but she needs the actual discharge order faxed to her along with order for the IV ATB needed at SNF (if that is what Dr. Johnson orders). I relayed this information to social services technician.
[2019-07-31 13:00] VITALS: BP 130/76
--- NOTE | 2019-07-31 13:55 | NUR ---
re-assessment Per Odalys at [facility] she cannot accept patient at this time. order re-directed to TREY and [facility]gr[facility]. Waiting on return call now. Addendum: 07/31/19 at 1357 by Gosia WILEY Amended: Links added.
--- NOTE | 2019-07-31 14:34 | NUR ---
re-assessment Per Himanshu Brambila at [facility] she has accepted patient to room [address] Fermin Dubois is the accepting MD. Report number is [phone]. I faxed to [facility] for auth. Will update [facility] with auth as soon as its provided. Once auth is obtained [facility] transport will be arranged. Addendum: 07/31/19 at 1436 by Gosia WILEY Amended: Links added.
[2019-07-31] MEDS: MORPHINE SULF INJ 2 MG/ML SYRINGE 1ML IV PRN (14:50)
--- NOTE | 2019-07-31 15:00 | NUR ---
MEDICATED TO MAINTAIN COMFORT. PLEASANT AND COOPERATIVE. USES BEDPAN TO VOID. ABLE TO MOVE HERSELF ABOUT IN BED WELL. MEDICATED WITH MORPHINE IV PRIOR TO DSG CHANGE TO LEFT LOWER EXTREMITY. DSG HAD DRIED OUT. NOC RN REPORTED THAT PT HAD REFUSED DSG CHANGE DURING HER SHIFT. DSG SATURATED WELL BEFORE REMOVING. PULLS AWAY EASILY. 1" PACKING INSERTED. DAKIN SOLUTION WET TO DRY DSG APPLIED AND COBAN WRAPPED ORDERED. TOLERATED WELL. STATES LESS PAINFUL AFTER DSG CHANGED.
--- NOTE | 2019-07-31 15:37 | NUR ---
Social Service Consult to arrange transportation for [facility]. Called and faxed Transportation Request Form to [facility]. The Time for brass pickler is 5:00 PM to 5:30pm. Will follow up.
--- NOTE | 2019-07-31 15:40 | NUR ---
RE-ASSESSMENT Per Faith [facility] high risk case manager auth for [facility] is [id number]. Auth for transportation if needed is [id number]. Hmianshu Brambila at [facility] has been provided with auth and transport time. Patient has been notified of SNF change and agrees to [facility]. Patient has been provided with address and phone number. Addendum: 07/31/19 at 1542 by Gosia WILEY Amended: Links added.
--- NOTE | 2019-07-31 16:30 | NUR ---
TRANSPORT ARRIVES. [facility]OM ASSIGNMENT CHANGED TO 201 (10
[2019-07-31] MEDS ORDERED: DAKINS QUARTER STR 0.125% (NaHypochlorite) 473 ML TOPICAL SOL TOP SCH (22:00)
== END 2019-07-31 17:15 | DRG 710 ==
LOC: ER 19:06 → EDBD 19:06 → OVERFLOW 19:07 → CENTRAL 07-20 04:55 → TELE-CENTR 07-25 20:55
PROVIDERS: ADMIT Hospitalist; ATTEND Internal Medicine
PROC: 0J9R0ZZ Drainage of Left Foot Subcutaneous Tissue and Fascia, Open Approach (ICD-10-PCS; principal; 2019-07-25 07:40)
DX: A41.9 Sepsis, unspecified organism (principal); N17.0 Acute kidney failure with tubular necrosis; E44.0 Moderate protein-calorie malnutrition; I96 Gangrene, not elsewhere classified; E11.22 Type 2 diabetes mellitus with diabetic chronic kidney disease; I82.402 Acute embolism and thrombosis of unspecified deep veins of left lower extremity; L02.416 Cutaneous abscess of left lower limb; N18.3 Chronic kidney disease, stage 3 (moderate); E66.01 Morbid (severe) obesity due to excess calories; E11.52 Type 2 diabetes mellitus with diabetic peripheral angiopathy with gangrene; D63.8 Anemia in other chronic diseases classified elsewhere; L02.612 Cutaneous abscess of left foot; L03.116 Cellulitis of left lower limb; S90.822A Blister (nonthermal), left foot, initial encounter; E78.5 Hyperlipidemia, unspecified; I87.2 Venous insufficiency (chronic) (peripheral); F32.9 Major depressive disorder, single episode, unspecified; I12.9 Hypertensive chronic kidney disease with stage 1 through stage 4 chronic kidney disease, or unspecified chronic kidney disease; Z79.899 Other long term (current) drug therapy; Z83.3 Family history of diabetes mellitus; Z82.49 Family history of ischemic heart disease and other diseases of the circulatory system; Z68.34 Body mass index [BMI] 34.0-34.9, adult; Z86.73 Personal history of transient ischemic attack (TIA), and cerebral infarction without residual deficits
CPT/HCPCS: 36415; 71045; 73630; 73718; 80048; 80053; 80061; 81001; 82306; 82570; 82962; 83036; 83735; 83970; 84100; 84156; 84300; 84484; 85007; 85025; 85027; 85610; 85730; 86850; 86900; 86901; 87040; 87070; 87075; 87086; 87205; 93970; 94640; 96361; 96374; 96375; G0378; J0690; J0696; J1815; J1956; J2001; J2250; J2405; J2704; J3490; J7060

== ENCOUNTER 2021-01-19 15:44 | Emergency (ER) | payer MEDICARE, MEDICAID ==
[~2021-01-19] VITALS: Ht 172.7 cm; Wt 72.6 kg
[2021-01-19 15:51] VITALS: BP 148/72
[2021-01-19 16:16] LABS: Basophils # (auto) 0 10 ^3/uL (0-0.2); Basophils % (auto) 0.6 % (0.0-2.0); Eosinophils # (auto) 0.1 10 ^3/uL (0-0.8); Eosinophils % (auto) 1.5 % (0.0-7.0); Hemoglobin 9.5 g/dL (12.2-16.2); Lymphocytes # (auto) 0.9 10 ^3/uL (0.4-5.4); Lymphocytes % (auto) 17.3 % (10.0-50.0); Mean Corpuscular Hemoglobin 31.4 pg (28.0-32.0); Mean Corpuscular Hgb Conc. 32.6 g/dL (32.0-36.0); Mean Corpuscular Volume 96.3 fL (80.0-100.0); Monocytes # (auto) 0.5 10 ^3/uL (0-1.3); Monocytes % (auto) 9.2 % (0.0-12.0); Neutrophils # (auto) 3.8 10 ^3/uL (1.6-8.6); Neutrophils % (auto) 71.4 % (37.0-80.0); Nucleated Red Blood Cells % 0.1 %; Red Blood Cells 3.01 10^6/uL (4.0-5.20); White Blood Cell 5.3 10^3/uL (4.4-10.8)
[2021-01-19 16:32] LABS: Albumin 3.1 g/dL (3.4-5.0); Calcium 9.2 mg/dL (8.5-10.1); Potassium 3.9 mmol/L (3.5-5.1)
[2021-01-19 16:36] LABS: BUN/Creatinine Ratio 9.9; Bilirubin, Total 0.2 mg/dL (0.2-1.0); Total Protein 6.5 g/dL (6.4-8.2)
== END 2021-01-19 23:26 | disposition left against medical advice (07) ==
LOC: ER 15:44
DX: I12.0 Hypertensive chronic kidney disease with stage 5 chronic kidney disease or end stage renal disease (principal); E11.22 Type 2 diabetes mellitus with diabetic chronic kidney disease; N18.6 End stage renal disease; Z99.2 Dependence on renal dialysis; E78.5 Hyperlipidemia, unspecified; Z79.899 Other long term (current) drug therapy
CPT/HCPCS: 36415; 80053; 85025